=== PATIENT | female | born 1940 | race Caucasian/White ===

== ENCOUNTER 2018-03-05 18:19 | Inpatient (IN) | payer MEDICARE, OTHER ==
[2018-03-05] MEDS ORDERED: Ondansetron 4 MG/2 ML SDV IVPUSH ONE ×2 (18:51→21:55)
[2018-03-05] MEDS: Sodium Chloride 0.9% 10 ML Syringe FLUSH PRN ×2 (18:56→20:13)
[2018-03-05] MEDS ORDERED: Iopamidol 612 MG/ML 100 ML Bottle IVPUSH ONE (19:27)
[2018-03-05] MEDS ORDERED: Diatrizoate Meglumine/Diatrizoate Sodium 37% 120 ML Bottle PO ONE (19:27)
[2018-03-05] MEDS ORDERED: HYDROmorphone 0.5 MG/0.5 ML Syringe IVPUSH ONE ×2 (19:51→21:55)
[2018-03-05] MEDS ORDERED: Sodium Chloride 0.9% 1,000 ML IV ONE ×2 (19:52→21:54)
[2018-03-05] MEDS ORDERED: Sodium Chloride 0.9% 1,000 ML ONE (19:54)
[2018-03-05] MEDS ORDERED: HYDROmorphone 0.5 MG/0.5 ML SYRINGE ONE ×2 (19:55→22:03)
--- NOTE | 2018-03-05 22:05 | EDM.PDOC ---
ED HPI GENERAL MEDICAL PROBLEM - General Chief Complaint: Abdominal Pain Stated Complaint: ABDOMINAL PAIN Time Seen by Provider: 03/05/18 18:57 Source of Information: Reports: Patient History Limitations: Reports: No Limitations - History of Present Illness INITIAL COMMENTS - FREE TEXT/NARRATIVE: 77-year-old female presents for evaluation and treatment of lower abdominal pain. Patient reports this stomach pain started initially at 0300 this morning. States it woke her from sleep. She took 2 aspirin and a Pepto and went back to sleep and slept till 7. Pain continued throughout the day and steadily worsened. She reports associated symptoms of nausea and vomiting. She did take some Metamucil earlier. She did have a bowel movement earlier this afternoon. She has been passing gas. She denies any fevers, chills, syncope, blood in her stools, chest pain or shortness of breath. She reports that she normally struggles with constipation. Previous abdominal surgeries include an appendectomy, several decades ago. She did have colonoscopy over 10 years ago. She was told that she had polyps. She states that she will get some occasional abdominal pain when she lifts heavy objects. Reports that she has a history of a hernia. Primary care provider is Dr. Hong. Last intake around 10am this morning. Lower Abdomen Pain Score (Numeric/FACES): 9 - Related Data Allergies Allergy/AdvReac Type Severity Reaction Status Date / Time No Known Allergies Allergy Verified 03/05/18 18:29 Home Meds: Home Meds . [No Known Home Meds] 03/05/18 [History] Past Medical History - Past Health History Medical/Surgical History: Denies Medical/Surgical History Social & Family History - Tobacco Use Smoking Status *Q: Never Smoker - Caffeine Use Caffeine Use: Reports: Coffee - Recreational Drug Use Recreational Drug Use: No ED ROS GENERAL - Review of Systems Review Of Systems: See Below Constitutional: Reports: Decreased Appetite. Denies: Fever, Chills Respiratory: Denies: Shortness of Breath Cardiovascular: Denies: Chest Pain GI/Abdominal: Reports: Abdominal Pain (lower abdomen), Nausea, Vomiting, Other ( last bowel movement today, reports she has been passing gas today). Denies: Bloody Stool Neurological: Reports: Dizziness (chronic). Denies: Syncope ED EXAM, GI/ABD - Physical Exam Exam: See Below Exam Limited By: No Limitations General Appearance: Alert, WD/WN, No Apparent Distress Ears: Normal External Exam Nose: Normal Inspection Throat/Mouth: Normal Inspection, Normal Lips, Normal Voice, No Airway Compromise Neck: Normal Inspection Respiratory/Chest: No Respiratory Distress, Lungs Clear, Normal Breath Sounds Cardiovascular: Normal Peripheral Pulses, Regular Rate, Rhythm, No Murmur GI/Abdominal Exam: Distended (mild), Tender (lower abdomen), Abnormal Bowel Sounds (high-pitched, tympanitic sounding bowel sounds.). No: Guarding, Rigid Neurological: Alert, Oriented, Normal Cognition Psychiatric: Normal Affect, Normal Mood Skin Exam: Warm, Normal Color Course - Vital Signs Last Recorded V/S: Last Vital Signs Temp 98.6 F 03/05/18 18:26 Pulse 81 03/05/18 18:26 Resp 16 03/05/18 18:26 BP 156/86 H 03/05/18 18:26 Pulse Ox 100 03/05/18 18:26 - Orders/Labs/Meds Orders: Active Orders 24 hr Category Date Time Status Peripheral IV Care [RC] . DIRECTED Care 03/05/18 18:51 Active Abdomen Pelvis w Cont [CT] Stat Exams 03/05/18 18:49 Taken Chest 1V-Tube Placement Chk NC [CR] Stat Exams 03/05/18 22:21 Ordered UA W/MICROSCOPIC [URIN] Stat Lab 03/05/18 19:49 Ordered Sodium Chloride 0.9% [Normal Saline] 1,000 ml Med 03/05/18 21:54 Active IV ONETIME Sodium Chloride 0.9% [Saline Flush] Med 03/05/18 18:51 Active 10 ml FLUSH ASDIRECTED PRN NG [Nasogastric Orogastric Tube Insertion] [OM.PC] Oth 03/05/18 21:56 Ordered Routine Peripheral IV Insertion Adult [OM.PC] Routine Oth 03/05/18 18:51 Ordered Medication Orders Sodium Chloride (Normal Saline) 1,000 mls @ 125 mls/hr IV ONETIME ONE Stop: 03/06/18 05:53 Sodium Chloride (Saline Flush) 10 ml FLUSH ASDIRECTED PRN PRN Reason: Keep Vein Open Last Admin: 03/05/18 20:13 Dose: 10 ml Admin: 03/05/18 18:56 Dose: 10 ml Labs: Laboratory Tests 08/14/18 08/14/18 08/14/18 Range/Units 18:30 18:30 18:30 WBC 12.14 H (3.98-10.04) K/mm3 RBC 4.45 (3.98-5.22) M/mm3 Hgb 13.8 (11.2-15.7) gm/L Hct 41.8 (34.1-44.9) % MCV 93.9 (79.4-94.8) fl MCH 31.0 (25.6-32.2) pg MCHC 33.0 (32.2-35.5) g/dl RDW Std Deviation 45.1 (36.4-46.3) fL Plt Count 373 H (182-369) K/mm3 MPV 9.3 L (9.4-12.3) fl Neutrophils % (Manual) 80 H (40-60) % Band Neutrophils % 1 (0-10) % Lymphocytes % (Manual) 14 L (20-40) % Atypical Lymphs % 0 % Monocytes % (Manual) 4 (2-10) % Eosinophils % (Manual) 1 (0.7-5.8) % Basophils % (Manual) 0 L (0.1-1.2) Platelet Estimate Adequate Plt Morphology Comment See note RBC Morph Comment Normal Sodium 141 (136-145) mEq/L Potassium 3.9 (3.5-5.1) mEq/L Chloride 103 (98-107) mEq/L Carbon Dioxide 28 (21-32) mEq/L Anion Gap 13.9 (5-15) BUN 11 (7-18) mg/dL Creatinine 0.7 (0.55-1.02) mg/dL Est Cr Clr Drug Dosing 54.79 mL/min Estimated GFR (MDRD) > 60 (>60) mL/min BUN/Creatinine Ratio 15.7 (14-18) Glucose 155 H (83-115) mg/dL Hemoglobin A1c (4.50-6.20) % Serum Osmolality 299 (280-300) mosm/kg Lactic Acid (0.4-2.0) mmol/L Calcium 9.2 (8.5-10.1) mg/dL Total Bilirubin 1.1 H (0.2-1.0) mg/dL AST 18 (15-37) U/L ALT 22 (14-59) U/L Alkaline Phosphatase 73 (46-116) U/L C-Reactive Protein 0.4 (<1.0) mg/dL Total Protein 7.5 (6.4-8.2) g/dl Albumin 3.9 (3.4-5.0) g/dl Globulin 3.6 gm/dL Albumin/Globulin Ratio 1.1 (1-2) Lipase 74 (73-393) U/L Urine Color (Yellow) Urine Appearance (Clear) Urine pH (5.0-8.0) Ur Specific [place] (1.005-1.030) Urine Protein (Negative) Urine Glucose (UA) (Negative) Urine Ketones (Negative) Urine Occult Blood (Negative) Urine Nitrite (Negative) Urine Bilirubin (Negative) Urine Urobilinogen (0.2-1.0) Ur Leukocyte Esterase (Negative) Urine RBC (0-5) /hpf Urine WBC (0-5) /hpf Ur Epithelial Cells (0-5) /hpf Urine Bacteria (FEW) /hpf Urine Mucus (FEW) /hpf Ketones (0.0-0.3) mM 03/05/18 03/05/18 03/05/18 Range/Units 18:30 18:30 19:49 WBC (3.98-10.04) K/mm3 RBC (3.98-5.22) M/mm3 Hgb (11.2-15.7) gm/L Hct (34.1-44.9) % MCV (79.4-94.8) fl MCH (25.6-32.2) pg MCHC (32.2-35.5) g/dl RDW Std Deviation (36.4-46.3) fL Plt Count (182-369) K/mm3 MPV (9.4-12.3) fl Neutrophils % (Manual) (40-60) % Band Neutrophils % (0-10) % Lymphocytes % (Manual) (20-40) % Atypical Lymphs % % Monocytes % (Manual) (2-10) % Eosinophils % (Manual) (0.7-5.8) % Basophils % (Manual) (0.1-1.2) Platelet Estimate Plt Morphology Comment RBC Morph Comment Sodium (136-145) mEq/L Potassium (3.5-5.1) mEq/L Chloride (98-107) mEq/L Carbon Dioxide (21-32) mEq/L Anion Gap (5-15) BUN (7-18) mg/dL Creatinine (0.55-1.02) mg/dL Est Cr Clr Drug Dosing mL/min Estimated GFR (MDRD) (>60) mL/min BUN/Creatinine Ratio (14-18) Glucose (83-115) mg/dL Hemoglobin A1c 6.20 (4.50-6.20) % Serum Osmolality (280-300) mosm/kg Lactic Acid (0.4-2.0) mmol/L Calcium (8.5-10.1) mg/dL Total Bilirubin (0.2-1.0) mg/dL AST (15-37) U/L ALT (14-59) U/L Alkaline Phosphatase (46-116) U/L C-Reactive Protein (<1.0) mg/dL Total Protein (6.4-8.2) g/dl Albumin (3.4-5.0) g/dl Globulin gm/dL Albumin/Globulin Ratio (1-2) Lipase (73-393) U/L Urine Color Yellow (Yellow) Urine Appearance Clear (Clear) Urine pH 6.5 (5.0-8.0) Ur Specific [place] 1.025 (1.005-1.030) Urine Protein 1+ H (Negative) Urine Glucose (UA) Negative (Negative) Urine Ketones 4+ H (Negative) Urine Occult Blood Trace-intact H (Negative) Urine Nitrite Negative (Negative) Urine Bilirubin Negative (Negative) Urine Urobilinogen 0.2 (0.2-1.0) Ur Leukocyte Esterase Trace H (Negative) Urine RBC 5-10 H (0-5) /hpf Urine WBC 5-10 H (0-5) /hpf Ur Epithelial Cells 0-5 (0-5) /hpf Urine Bacteria Few (FEW) /hpf Urine Mucus Few (FEW) /hpf Ketones 0.55 (0.0-0.3) mM 03/05/18 Range/Units 21:34 WBC (3.98-10.04) K/mm3 RBC (3.98-5.22) M/mm3 Hgb (11.2-15.7) gm/L Hct (34.1-44.9) % MCV (79.4-94.8) fl MCH (25.6-32.2) pg MCHC (32.2-35.5) g/dl RDW Std Deviation (36.4-46.3) fL Plt Count (182-369) K/mm3 MPV (9.4-12.3) fl Neutrophils % (Manual) (40-60) % Band Neutrophils % (0-10) % Lymphocytes % (Manual) (20-40) % Atypical Lymphs % % Monocytes % (Manual) (2-10) % Eosinophils % (Manual) (0.7-5.8) % Basophils % (Manual) (0.1-1.2) Platelet Estimate Plt Morphology Comment RBC Morph Comment Sodium (136-145) mEq/L Potassium (3.5-5.1) mEq/L Chloride (98-107) mEq/L Carbon Dioxide (21-32) mEq/L Anion Gap (5-15) BUN (7-18) mg/dL Creatinine (0.55-1.02) mg/dL Est Cr Clr Drug Dosing mL/min Estimated GFR (MDRD) (>60) mL/min BUN/Creatinine Ratio (14-18) Glucose (83-115) mg/dL Hemoglobin A1c (4.50-6.20) % Serum Osmolality (280-300) mosm/kg Lactic Acid 1.2 (0.4-2.0) mmol/L Calcium (8.5-10.1) mg/dL Total Bilirubin (0.2-1.0) mg/dL AST (15-37) U/L ALT (14-59) U/L Alkaline Phosphatase (46-116) U/L C-Reactive Protein (<1.0) mg/dL Total Protein (6.4-8.2) g/dl Albumin (3.4-5.0) g/dl Globulin gm/dL Albumin/Globulin Ratio (1-2) Lipase (73-393) U/L Urine Color (Yellow) Urine Appearance (Clear) Urine pH (5.0-8.0) Ur Specific [place] (1.005-1.030) Urine Protein (Negative) Urine Glucose (UA) (Negative) Urine Ketones (Negative) Urine Occult Blood (Negative) Urine Nitrite (Negative) Urine Bilirubin (Negative) Urine Urobilinogen (0.2-1.0) Ur Leukocyte Esterase (Negative) Urine RBC (0-5) /hpf Urine WBC (0-5) /hpf Ur Epithelial Cells (0-5) /hpf Urine Bacteria (FEW) /hpf Urine Mucus (FEW) /hpf Ketones (0.0-0.3) mM Meds: Medications Generic Name Dose Route Start Last Admin Trade Name Russell PRN Reason Stop Dose Admin Sodium Chloride 1,000 mls @ 125 mls/hr 03/05/18 21:54 Normal Saline IV 03/06/18 05:53 ONETIME ONE Sodium Chloride 10 ml 03/05/18 18:51 03/05/18 20:13 Saline Flush FLUSH 10 ml ASDIRECTED PRN Administration Keep Vein Open Discontinued Medications Generic Name Dose Route Start Last Admin Trade Name Russell PRN Reason Stop Dose Admin Diatrizoate Meglum/Diatrizoate Sod 120 ml 03/05/18 19:27 03/05/18 20:13 Gastrografin 37% PO 03/05/18 19:28 120 ml ONETIME ONE Administration Hydromorphone HCl 0.5 mg 03/05/18 19:51 03/05/18 19:58 Dilaudid IVPUSH 03/05/18 19:52 0.5 mg ONETIME ONE Administration Hydromorphone HCl Confirm 03/05/18 19:55 03/05/18 19:59 Dilaudid Administered 03/05/18 19:56 Not Given Dose 0.5 mg .ROUTE .STK-MED ONE Hydromorphone HCl 0.5 mg 03/05/18 21:55 Dilaudid IVPUSH 03/05/18 21:56 ONETIME ONE Hydromorphone HCl Confirm 03/05/18 22:03 03/05/18 22:08 Dilaudid Administered 03/05/18 22:04 0.5 mg Dose Administration 0.5 mg .ROUTE .STK-MED ONE Sodium Chloride 1,000 mls @ 999 mls/hr 03/05/18 19:52 03/05/18 19:59 Normal Saline IV 03/05/18 20:52 999 mls/hr ONETIME ONE Administration Sodium Chloride Confirm 03/05/18 19:54 03/05/18 20:30 Normal Saline Administered 03/05/18 19:55 Not Given Dose 1,000 mls @ as directed .ROUTE .STK-MED ONE Iopamidol 100 ml 03/05/18 19:27 03/05/18 20:13 Isovue-300 (61%) IVPUSH 03/05/18 19:28 100 ml ONETIME ONE Administration Lidocaine HCl Confirm 03/05/18 22:23 Xylocaine 2% Jelly Administered 03/05/18 22:24 Dose 10 ml .ROUTE .STK-MED ONE Ondansetron HCl 4 mg 03/05/18 18:51 03/05/18 18:56 Zofran IVPUSH 03/05/18 18:52 4 mg ONETIME ONE Administration Ondansetron HCl 4 mg 03/05/18 21:55 03/05/18 22:08 Zofran IVPUSH 03/05/18 21:56 4 mg ONETIME ONE Administration - Radiology Interpretation Free Text/Narrative:: CT of the abdomen and pelvis with IV and oral contrast impression per vrad: Large hiatal hernia with distended stomach filled with oral contrast. Findings consistent with small bowel obstruction. Fluid-filled dilated loops of small bowel with transition point within the mid pelvis. Pseudo-feces within dilated small bowel perceiving the transition point. Distal small bowel is decompressed. No mucosal thickening. Mild left hydronephrosis. No obstructing renal or ureteral stone identified. Findings could be consistent with recently passed stone versus infection. Recommend clinical correlation and correlation with urinalysis/culture. Small amount of free fluid within the pelvis. Left lateral lower abdominal wall feeling hernia containing nonobstructed sigmoid colon. No CT findings of acute appendicitis. Hepatic steatosis. Additional nonemergent CT findings as described. - Re-Assessments/Exams Free Text/Narrative Re-Assessment/Exam: 03/05/18 21:17 Dr. Mcfadden in the ED. Made aware of patient as a possible admit for concern of small bowel obstruction. Recommended adding on serum ketones and lactic acid due to 4+ ketones in urine. 03/05/18 21:49 CT returned. Small bowel obstruction. Fluid-filled dilated loops of small bowel with transition point within the mid pelvis. Pseudo-feces within dilated small bowel proceeding the transition point. Distal small bowel is decompressed. No mucosal thickening. Large hiatal hernia. Sequelae and hernia on the left lateral lower abdomen. Discussed with Dr. Greenfield, surgery online producer, recommended NG tube and admission to the hospitalist. She will follow up in the morning. She would like to be notified overnight if her symptoms change or worsen. No plan for surgery at this time. Reviewed the labs and imaging with the patient and her . They're quite anxious about her diagnosis. Would like to consider going to [place]. I did educate them that the initial care would be the same therefore if they would like to go to [place] it would be possible they may have to pay for an ambulance ride. 03/05/18 22:52 Patient and her asked that I explore the option of her going to [place]. I contacted [facility] in [place]. Currently full and her only exception OB and peds patient's. I informed him this of this and they agreed to stay here at our hospital. Case discussed with Dr. Mcfadden, hospitalist on-call. She'll be a full admit MedSurg with telemetry. Departure - Departure Time of Disposition: 23:03 Disposition: Admitted As Inpatient 65 Condition: Fair Clinical Impression: Small bowel obstruction - Discharge Information *PRESCRIPTION DRUG MONITORING PROGRAM REVIEWED*: No *COPY OF PRESCRIPTION DRUG MONITORING REPORT IN PATIENT LENCHO: No Referrals: Tammy Hong MD [Primary Care Provider] - Forms: ED Department Discharge Additional Instructions: Patient to be admitted to Dr. Mcfadden for Small bowel obstruction. Med/surg with tele full admission. - My Orders Last 24 Hours: My Active Orders 03/05/18 18:49 Abdomen Pelvis w Cont [CT] Stat 03/05/18 18:51 Peripheral IV Care [RC] . DIRECTED Sodium Chloride 0.9% [Saline Flush] 10 ml FLUSH ASDIRECTED PRN Peripheral IV Insertion Adult [OM.PC] Routine 03/05/18 19:49 UA W/MICROSCOPIC [URIN] Stat 03/05/18 21:54 Sodium Chloride 0.9% [Normal Saline] 1,000 ml IV ONETIME 03/05/18 21:56 NG [Nasogastric Orogastric Tube Insertion] [OM.PC] Routine 03/05/18 22:21 Chest 1V-Tube Placement Chk NC [CR] Stat - Assessment/Plan Last 24 Hours: My Active Orders 03/05/18 18:49 Abdomen Pelvis w Cont [CT] Stat 03/05/18 18:51 Peripheral IV Care [RC] . DIRECTED Sodium Chloride 0.9% [Saline Flush] 10 ml FLUSH ASDIRECTED PRN Peripheral IV Insertion Adult [OM.PC] Routine 03/05/18 19:49 UA W/MICROSCOPIC [URIN] Stat 03/05/18 21:54 Sodium Chloride 0.9% [Normal Saline] 1,000 ml IV ONETIME 03/05/18 21:56 NG [Nasogastric Orogastric Tube Insertion] [OM.PC] Routine 03/05/18 22:21 Chest 1V-Tube Placement Chk NC [CR] Stat
[2018-03-05] MEDS ORDERED: Lidocaine 2% Jelly 10 ML Urojet ONE (22:23)
[2018-03-05] MEDS ORDERED: Lidocaine 2% Jelly 10 ML Urojet MUCMEM ONE (23:11)
[2018-03-06] MEDS ORDERED: LORazepam 2 MG/ML SDV IVPUSH PRN (00:48)
[2018-03-06] MEDS ORDERED: Pantoprazole 40 MG Vial IVPUSH ONE (01:00)
[2018-03-06] MEDS: HYDROmorphone 0.5 MG/0.5 ML Syringe IVPUSH PRN ×3 (01:01→17:13)
[2018-03-06] MEDS ORDERED: Ondansetron 4 MG/2 ML SDV IV PRN (06:26)
[2018-03-06] MEDS ORDERED: Acetaminophen 650 MG Supp RECTAL PRN (06:26)
[2018-03-06] MEDS ORDERED: Metoprolol Tartrate 5 MG/5 ML SDV IVPUSH PRN (06:30)
[2018-03-06] MEDS ORDERED: hydrALAZINE 20 MG/ML SDV IVPUSH PRN (06:30)
--- NOTE | 2018-03-06 07:00 | PCM.HP ---
H&P History of Present Illness - General Date of Service: 03/06/18 Admit Problem/Dx: Admission Diagnosis/Problem Admission Diagnosis/Problem Small bowel obstruction Source of Information: Patient, Old Records, Provider, RN, RN Notes Reviewed History Limitations: Reports: No Limitations - History of Present Illness Initial Comments - Free Text/Narative: Jaz Ramirez is a 77 yo female who presented to our ED yesterday evening with lower quadrant abdominal pain. She reports the pain started around 3 AM this morning and woke her from sleep. She took 2 aspirin and Pepto-Bismol went back to sleep. She woke again at 7 AM with pain throughout the day and is steadily worsened. She did have nausea and vomiting. She did take some Metamucil at one point and reportedly did have a small bowel movement earlier in the afternoon prior to visiting the ED. She reported they have been passing gas. Denies any fever, chills, syncope, hematochezia, chest pain, shortness of breath. She reports she has chronic as the patient and has had an appendectomy. She reports her colonoscopy was over 10 years ago and revealed polyps. She does report a current hernia which does give her some pain when she lifts heavy objects. Her last oral intake was around 10 AM on 03/05/18. In the ED Was 98.6 Fahrenheit. Pulse 81. Respirations 16. Blood pressure was elevated at 156/86. Pulse ox 100%. Labs were obtained: WBC is elevated at 12.14. He was low at 13.8. Hematocrit 41.8. She is normocytic. Lips are slightly elevated at 373,000. Neutrophils were elevated at 80%. There is 1% band neutrophils noted. Sodium is 141. Potassium 3.9. Chloride 103. Cardiac the 28. Anion gap 13.9. BUN is 11. Creatinine 0.7. EGFR is given 60. Glucose is elevated at 155. Serum osmolality is 299. Calcium 9.2. Bilirubin slightly elevated at 1.1. AST is 18, ALT 22, alkaline phosphatase 73. CRP 0.4. Protein 7.5. Albumin 3.9. Lipase is 74. A1c was obtained in the 6.2. UA is obtained and shows 1+ protein, 4+ ketones, Trace intact blood, Trace leukocyte esterase, 5-10 RBCs, and 5-10 WBCs. 55. Lactic acid is 1.2. CT scan of the abdomen and pelvis with IV and oral contrast is ordered and interpreted by [facility] as "large hiatal hernia with distended stomach filled with oral contrast. Findings consistent with small bowel obstruction. Fluid-filled dilated loops of small bowel with transition point within the mid pelvis. Pseudo-feces within dilated small bowel proceeding the transition point. Distal small bowel decompressed. No mucosal thickening. Mild left hydronephrosis. No obstructing renal artery ureteral stone identified. Findings could be consistent with recently passed stone versus infection. Recommend Correlation and Correlation with Urinalysis Culture. Small Amount of Free Fluid within the Pelvis. Left Lateral Lower Abdominal Wall hiatal hernia containing nonobstructed sigmoid colon. No CT findings of acute appendicitis. Hepatic steatosis. Additional nonemergent CT findings as described. call center associate surgeon was contacted and recommended NG tube, which was subsequently placed and admission to the hospital. There is no plan for surgery at this time. She is given Dilaudid for pain. Started on normal saline. And was given Zofran for nausea. She is subsequently admitted to the medical surgical floor on telemetry. She denies any past medical history and takes no medications. She was never a smoker. Lower Abdomen Pain Score (Numeric/FACES): 9 - Related Data Allergies/Adverse Reactions: Allergies Allergy/AdvReac Type Severity Reaction Status Date / Time No Known Allergies Allergy Verified 03/05/18 18:29 Home Medications: Home Meds . [No Known Home Meds] 03/05/18 [History] Past Medical History - Past Health History Medical/Surgical History: Denies Medical/Surgical History HEENT History: Reports: Cataract Cardiovascular History: Reports: Blood Clots/VTE/DVT, Other (See Below) Other Cardiovascular History: 2008 blood clot in leg Gastrointestinal History: Reports: Other (See Below) Other Gastrointestinal History: hernia [employer] History: Reports: Neurological History: Reports: Speech Problems, Other (See Below) Other Neuro History: at times can't say correct words, states this is her baseline. Psychiatric History: Reports: Depression Other Psychiatric History: hospitalized for psychiatric depression - Past Surgical History HEENT Surgical History: Reports: Cataract Surgery Cardiovascular Surgical History: Reports: None GI Surgical History: Reports: Appendectomy, Colonoscopy Social & Family History - Family History Family Medical History: Noncontributory - Tobacco Use Smoking Status *Q: Former Smoker Used Tobacco, but Quit: Yes Month/Year Tobacco Last Used: 50 years ago - Caffeine Use Caffeine Use: Reports: Coffee - Recreational Drug Use Recreational Drug Use: No H&P Review of Systems - Review of Systems: Review Of Systems: See Below General: Reports: Decreased Appetite. Denies: Fever, Chills, Malaise, Weakness , Fatigue HEENT: Reports: Sore Throat (NG tube in place ). Denies: Ear Pain, Eye Pain, Rhinitis, Post Nasal Drip Pulmonary: Reports: No Symptoms. Denies: Shortness of Breath, Wheezing, Cough, Sputum Cardiovascular: Reports: No Symptoms. Denies: Chest Pain, Palpitations, Dyspnea on Exertion, Edema, Lightheadedness, Claudication Gastrointestinal: Reports: Abdominal Pain (upper quadrants ), Constipation ( chronic ), Decreased Appetite. Denies: Diarrhea, Difficulty Swallowing, Distension, Flatus, Hematemesis, Hematochezia, Melena, Nausea (none currently ) , Vomiting (none currently ) Genitourinary: Reports: No Symptoms. Denies: Dysuria, Frequency, Burning, Pain , Urgency Musculoskeletal: Reports: No Symptoms Skin: Reports: No Symptoms Psychiatric: Reports: No Symptoms Neurological: Reports: No Symptoms Hematologic/Lymphatic: Reports: No Symptoms Immunologic: Reports: No Symptoms Exam - Exam Exam: See Below - Vital Signs Vital Signs: Last Vital Signs Temp 98.1 F 03/06/18 03:44 Pulse 77 03/06/18 03:44 Resp 16 03/06/18 03:44 BP 132/50 L 03/06/18 03:44 Pulse Ox 97 03/06/18 03:44 Weight: 143 lb 1.6 oz - Exam Quality Assessment: DVT Prophylaxis, Other (NG tube in place ) General: Alert, Oriented, Cooperative. No: Mild Distress HEENT: Conjunctiva Clear, EACs Clear, EOMI, Hearing Intact, Mucosa Moist & Fabens , Posterior Pharynx Clear, PERRLA Neck: Supple, Trachea Midline. No: JVD Lungs: Clear to Auscultation, Normal Respiratory Effort Cardiovascular: Regular Rate, Regular Rhythm GI/Abdominal Exam: Distended (mildly), Tender, Abnormal Bowel Sounds ( hyperactive ). No: Rigid (Female) Exam: Deferred Rectal (Female) Exam: Deferred Back Exam: Normal Inspection, Full Range of Motion Extremities: Normal Inspection, Normal Range of Motion, Non-Tender, No Pedal Edema, Normal Capillary Refill Peripheral Pulses: 2+: Radial (L), Radial (R), Posterior Tibial (L), Posterior Tibial (R), Dorsalis Pedis (L), Dorsalis Pedis (R) Skin: Warm, Dry, Intact Neurological: Cranial Nerves Intact (grossly ) Neuro Extensive - Mental Status: Alert, Oriented x3, Normal Mood/Affect - Patient Data Lab Results Last 24 hrs: Laboratory Results - last 24 hr 03/05/18 03/05/18 03/05/18 Range/Units 18:30 18:30 18:30 WBC 12.14 H (3.98-10.04) K/mm3 RBC 4.45 (3.98-5.22) M/mm3 Hgb 13.8 (11.2-15.7) gm/L Hct 41.8 (34.1-44.9) % MCV 93.9 (79.4-94.8) fl MCH 31.0 (25.6-32.2) pg MCHC 33.0 (32.2-35.5) g/dl RDW Std Deviation 45.1 (36.4-46.3) fL Plt Count 373 H (182-369) K/mm3 MPV 9.3 L (9.4-12.3) fl Neutrophils % (Manual) 80 H (40-60) % Band Neutrophils % 1 (0-10) % Lymphocytes % (Manual) 14 L (20-40) % Atypical Lymphs % 0 % Monocytes % (Manual) 4 (2-10) % Eosinophils % (Manual) 1 (0.7-5.8) % Basophils % (Manual) 0 L (0.1-1.2) Platelet Estimate Adequate Plt Morphology Comment See note RBC Morph Comment Normal Sodium 141 (136-145) mEq/L Potassium 3.9 (3.5-5.1) mEq/L Chloride 103 (98-107) mEq/L Carbon Dioxide 28 (21-32) mEq/L Anion Gap 13.9 (5-15) BUN 11 (7-18) mg/dL Creatinine 0.7 (0.55-1.02) mg/dL Est Cr Clr Drug Dosing 54.79 mL/min Estimated GFR (MDRD) > 60 (>60) mL/min BUN/Creatinine Ratio 15.7 (14-18) Glucose 155 H (83-115) mg/dL Hemoglobin A1c (4.50-6.20) % Serum Osmolality 299 (280-300) mosm/kg Lactic Acid (0.4-2.0) mmol/L Calcium 9.2 (8.5-10.1) mg/dL Total Bilirubin 1.1 H (0.2-1.0) mg/dL AST 18 (15-37) U/L ALT 22 (14-59) U/L Alkaline Phosphatase 73 (46-116) U/L C-Reactive Protein 0.4 (<1.0) mg/dL Total Protein 7.5 (6.4-8.2) g/dl Albumin 3.9 (3.4-5.0) g/dl Globulin 3.6 gm/dL Albumin/Globulin Ratio 1.1 (1-2) Lipase 74 (73-393) U/L Urine Color (Yellow) Urine Appearance (Clear) Urine pH (5.0-8.0) Ur Specific [place] (1.005-1.030) Urine Protein (Negative) Urine Glucose (UA) (Negative) Urine Ketones (Negative) Urine Occult Blood (Negative) Urine Nitrite (Negative) Urine Bilirubin (Negative) Urine Urobilinogen (0.2-1.0) Ur Leukocyte Esterase (Negative) Urine RBC (0-5) /hpf Urine WBC (0-5) /hpf Ur Epithelial Cells (0-5) /hpf Urine Bacteria (FEW) /hpf Urine Mucus (FEW) /hpf Ketones (0.0-0.3) mM 03/05/18 03/05/18 03/05/18 Range/Units 18:30 18:30 19:49 WBC (3.98-10.04) K/mm3 RBC (3.98-5.22) M/mm3 Hgb (11.2-15.7) gm/L Hct (34.1-44.9) % MCV (79.4-94.8) fl MCH (25.6-32.2) pg MCHC (32.2-35.5) g/dl RDW Std Deviation (36.4-46.3) fL Plt Count (182-369) K/mm3 MPV (9.4-12.3) fl Neutrophils % (Manual) (40-60) % Band Neutrophils % (0-10) % Lymphocytes % (Manual) (20-40) % Atypical Lymphs % % Monocytes % (Manual) (2-10) % Eosinophils % (Manual) (0.7-5.8) % Basophils % (Manual) (0.1-1.2) Platelet Estimate Plt Morphology Comment RBC Morph Comment Sodium (136-145) mEq/L Potassium (3.5-5.1) mEq/L Chloride (98-107) mEq/L Carbon Dioxide (21-32) mEq/L Anion Gap (5-15) BUN (7-18) mg/dL Creatinine (0.55-1.02) mg/dL Est Cr Clr Drug Dosing mL/min Estimated GFR (MDRD) (>60) mL/min BUN/Creatinine Ratio (14-18) Glucose (83-115) mg/dL Hemoglobin A1c 6.20 (4.50-6.20) % Serum Osmolality (280-300) mosm/kg Lactic Acid (0.4-2.0) mmol/L Calcium (8.5-10.1) mg/dL Total Bilirubin (0.2-1.0) mg/dL AST (15-37) U/L ALT (14-59) U/L Alkaline Phosphatase (46-116) U/L C-Reactive Protein (<1.0) mg/dL Total Protein (6.4-8.2) g/dl Albumin (3.4-5.0) g/dl Globulin gm/dL Albumin/Globulin Ratio (1-2) Lipase (73-393) U/L Urine Color Yellow (Yellow) Urine Appearance Clear (Clear) Urine pH 6.5 (5.0-8.0) Ur Specific [place] 1.025 (1.005-1.030) Urine Protein 1+ H (Negative) Urine Glucose (UA) Negative (Negative) Urine Ketones 4+ H (Negative) Urine Occult Blood Trace-intact H (Negative) Urine Nitrite Negative (Negative) Urine Bilirubin Negative (Negative) Urine Urobilinogen 0.2 (0.2-1.0) Ur Leukocyte Esterase Trace H (Negative) Urine RBC 5-10 H (0-5) /hpf Urine WBC 5-10 H (0-5) /hpf Ur Epithelial Cells 0-5 (0-5) /hpf Urine Bacteria Few (FEW) /hpf Urine Mucus Few (FEW) /hpf Ketones 0.55 (0.0-0.3) mM 03/05/18 Range/Units 21:34 WBC (3.98-10.04) K/mm3 RBC (3.98-5.22) M/mm3 Hgb (11.2-15.7) gm/L Hct (34.1-44.9) % MCV (79.4-94.8) fl MCH (25.6-32.2) pg MCHC (32.2-35.5) g/dl RDW Std Deviation (36.4-46.3) fL Plt Count (182-369) K/mm3 MPV (9.4-12.3) fl Neutrophils % (Manual) (40-60) % Band Neutrophils % (0-10) % Lymphocytes % (Manual) (20-40) % Atypical Lymphs % % Monocytes % (Manual) (2-10) % Eosinophils % (Manual) (0.7-5.8) % Basophils % (Manual) (0.1-1.2) Platelet Estimate Plt Morphology Comment RBC Morph Comment Sodium (136-145) mEq/L Potassium (3.5-5.1) mEq/L Chloride (98-107) mEq/L Carbon Dioxide (21-32) mEq/L Anion Gap (5-15) BUN (7-18) mg/dL Creatinine (0.55-1.02) mg/dL Est Cr Clr Drug Dosing mL/min Estimated GFR (MDRD) (>60) mL/min BUN/Creatinine Ratio (14-18) Glucose (83-115) mg/dL Hemoglobin A1c (4.50-6.20) % Serum Osmolality (280-300) mosm/kg Lactic Acid 1.2 (0.4-2.0) mmol/L Calcium (8.5-10.1) mg/dL Total Bilirubin (0.2-1.0) mg/dL AST (15-37) U/L ALT (14-59) U/L Alkaline Phosphatase (46-116) U/L C-Reactive Protein (<1.0) mg/dL Total Protein (6.4-8.2) g/dl Albumin (3.4-5.0) g/dl Globulin gm/dL Albumin/Globulin Ratio (1-2) Lipase (73-393) U/L Urine Color (Yellow) Urine Appearance (Clear) Urine pH (5.0-8.0) Ur Specific [place] (1.005-1.030) Urine Protein (Negative) Urine Glucose (UA) (Negative) Urine Ketones (Negative) Urine Occult Blood (Negative) Urine Nitrite (Negative) Urine Bilirubin (Negative) Urine Urobilinogen (0.2-1.0) Ur Leukocyte Esterase (Negative) Urine RBC (0-5) /hpf Urine WBC (0-5) /hpf Ur Epithelial Cells (0-5) /hpf Urine Bacteria (FEW) /hpf Urine Mucus (FEW) /hpf Ketones (0.0-0.3) mM Result Diagrams: 03/06/18 06:15 03/06/18 06:15 - Problem List (1) Small bowel obstruction SNOMED Code(s): 775578145 ICD Code: K56.609 - UNSP INTESTNL OBST, UNSP TO PARTIAL VERSUS COMPLETE OBST Status: Acute Current Visit: Yes (2) Constipation SNOMED Code(s): 42663958 ICD Code: K59.00 - CONSTIPATION, UNSPECIFIED Status: Chronic Priority: Low Current Visit: No Qualifiers: Constipation type: unspecified constipation type Qualified Code(s): K59.00 - Constipation, unspecified Problem List Initiated/Reviewed/Updated: Yes Orders Last 24hrs: Active Orders 24 hr Category Date Time Status Patient Status [ADT] Routine ADT 03/05/18 23:07 Active Blood Glucose Check, Bedside [RC] Q6HR Care 03/06/18 06:54 Ordered Cardiac Monitoring [RC] CONTINUOUS Care 03/06/18 06:26 Active Height and Weight [RC] DAILY Care 03/06/18 06:26 Active Intake and Output [RC] QSHIFT Care 03/06/18 06:26 Active Notify Provider Consults [RC] ASDIRECTED Care 03/06/18 00:47 Active Oxygen Therapy [RC] PRN Care 03/06/18 06:26 Active Pulse Oximetry [RC] PRN Care 03/06/18 06:26 Active Up With Assistance [RC] ASDIRECTED Care 03/06/18 06:26 Active Up to Chair [RC] ASDIRECTED Care 03/06/18 06:26 Active VTE/DVT Education [RC] PER UNIT ROUTINE Care 03/06/18 06:26 Active Vital Signs [RC] Q4H Care 03/06/18 06:26 Active Consult to Physician [CONS] Routine Cons 03/06/18 00:46 Active OT Evaluation and Treatment [CONS] Routine Cons 03/06/18 06:26 Active PT Evaluation and Treatment [CONS] Routine Cons 03/06/18 06:26 Active NPO [Nothing Per Oral Diet] [DIET] Diet 03/06/18 Breakfast Active Abdomen Pelvis w Cont [CT] Stat Exams 03/05/18 18:49 Taken Chest 1V-Tube Placement Chk NC [CR] Stat Exams 03/05/18 22:21 Taken A1C [GLYCOSYLATED HEMOGLOBIN,HGBA1C] [CHEM] Routine Lab 03/06/18 06:36 Ordered BASIC METABOLIC PANEL,BMP [CHEM] AM Lab 03/07/18 05:11 Ordered BASIC METABOLIC PANEL,BMP [CHEM] AM Lab 03/08/18 05:11 Ordered BASIC METABOLIC PANEL,BMP [CHEM] AM Lab 03/09/18 05:11 Ordered BASIC METABOLIC PANEL,BMP [CHEM] AM Lab 03/10/18 05:11 Ordered BMP [BASIC METABOLIC PANEL,BMP] [CHEM] Routine Lab 03/06/18 05:00 Ordered CBC WITH AUTO DIFF [HEME] AM Lab 03/07/18 05:11 Ordered CBC WITH AUTO DIFF [HEME] AM Lab 03/08/18 05:11 Ordered CBC WITH AUTO DIFF [HEME] AM Lab 03/09/18 05:11 Ordered CBC WITH AUTO DIFF [HEME] AM Lab 03/10/18 05:11 Ordered CBC WITH AUTO DIFF [HEME] Routine Lab 03/06/18 05:00 Ordered CRP [C-REACTIVE PROTEIN] [CHEM] AM Lab 03/07/18 05:11 Ordered CRP [C-REACTIVE PROTEIN] [CHEM] AM Lab 03/08/18 05:11 Ordered CRP [C-REACTIVE PROTEIN] [CHEM] AM Lab 03/09/18 05:11 Ordered CRP [C-REACTIVE PROTEIN] [CHEM] AM Lab 03/10/18 05:11 Ordered CULTURE URINE [RM] Stat Lab 03/05/18 19:49 Ordered MAGNESIUM [CHEM] AM Lab 03/07/18 05:11 Ordered MAGNESIUM [CHEM] AM Lab 03/08/18 05:11 Ordered MAGNESIUM [CHEM] AM Lab 03/09/18 05:11 Ordered MAGNESIUM [CHEM] AM Lab 03/10/18 05:11 Ordered MG [MAGNESIUM] [CHEM] Routine Lab 03/06/18 05:00 Ordered UA W/MICROSCOPIC [URIN] Stat Lab 03/05/18 19:49 Ordered Acetaminophen [Tylenol] Med 03/06/18 06:26 Active 650 mg RECTAL Q4H PRN Dextrose 5%-0.9% NaCl [Dextrose 5%-Normal Saline] 1,000 Med 03/06/18 06:45 Active ml IV ASDIRECTED Enoxaparin [Lovenox] Med 03/06/18 09:00 Active 40 mg SUBCUT DAILY HYDROmorphone [Dilaudid] Med 03/06/18 00:47 Active 0.5 mg IVPUSH Q4H PRN LORazepam [Ativan] Med 03/06/18 00:48 Active 0.5 mg IVPUSH Q8H PRN Metoprolol Tartrate [Lopressor] Med 03/06/18 06:30 Active 5 mg IVPUSH Q4H PRN Ondansetron [Zofran] Med 03/06/18 06:26 Active 4 mg IV Q6H PRN Pantoprazole [ProTONIX IV] Med 03/06/18 09:00 Active 40 mg IV DAILY Sodium Chloride 0.9% [Saline Flush] Med 03/05/18 18:51 Active 10 ml FLUSH ASDIRECTED PRN hydrALAZINE [Apresoline] Med 03/06/18 06:30 Active 20 mg IVPUSH Q4H PRN NG [Nasogastric Orogastric Tube Insertion] [OM.PC] Oth 03/05/18 21:56 Ordered Routine Peripheral IV Insertion Adult [OM.PC] Routine Oth 03/05/18 18:51 Ordered Resuscitation Status Routine Resus Stat 03/06/18 01:12 Ordered Medication Orders Acetaminophen (Tylenol) 650 mg RECTAL Q4H PRN PRN Reason: Pain (mild 1-3) Enoxaparin Sodium (Lovenox) 40 mg SUBCUT DAILY KACI Hydralazine HCl (Apresoline) 20 mg IVPUSH Q4H PRN PRN Reason: Hypertension Hydromorphone HCl (Dilaudid) 0.5 mg IVPUSH Q4H PRN PRN Reason: Pain Last Admin: 03/06/18 01:01 Dose: 0.5 mg Dextrose/Sodium Chloride (Dextrose 5%-Normal Saline) 1,000 mls @ 75 mls/hr IV ASDIRECTED KACI Lorazepam (Ativan) 0.5 mg IVPUSH Q8H PRN PRN Reason: anxiety/insomnia Metoprolol Tartrate (Lopressor) 5 mg IVPUSH Q4H PRN PRN Reason: Tachycardia Ondansetron HCl (Zofran) 4 mg IV Q6H PRN PRN Reason: Nausea/Vomiting Pantoprazole Sodium (Protonix Iv) 40 mg IV DAILY KACI Sodium Chloride (Saline Flush) 10 ml FLUSH ASDIRECTED PRN PRN Reason: Keep Vein Open Last Admin: 03/05/18 20:13 Dose: 10 ml Admin: 03/05/18 18:56 Dose: 10 ml Assessment/Plan Comment:: I/P: Acute: SBO -Reports abdominal pain started around 0300 on 03/05/18 -Progressed to nausea and vomiting -Denies fever or chills, denies prior history of SBO -Reports prior appendectomy and colonoscopy 10+ years ago with polyps removed ; hx/o chronic constipation -Has current hernia which produces pain with heavy lifting -WBC 12.14 -CRP 0.4 -Lactic acid 1.2 -CT scan suggests SBO with transition point in mid pelvis, No mucosal thickening, Large hiatal hernia on left lower abdomen -NG tube placed in ED - continue with low intermittent suction -Pain medications as ordered - avoid opioids if possible -NPO with ice chips -D5NS with glucose checks Q6hr due to NPO -IV protonix -GS consulted in ED - Dr. Long Lujan -Ambulate -Anti-emetics as needed "Pre-Diabetic" -Blood glucose 155 in ED -A1C 6.2 -Briefly discussed lifestyle changes -PCP to monitor and follow-up on after discharge Chronic: Constipation Plan: Admit to medical floor on telemetry Other orders as indicated above PT/OT Routine AM labs DVT prophylaxis: Lovenox GI prophylaxis: Protonix
[2018-03-06] MEDS: Dextrose 5%-0.9% NaCl 1,000 ML IV SCH ×2 (07:11→18:49)
[2018-03-06] MEDS: Benzocaine/Cetylpyridinium/Menthol Lozenge MUCMEM PRN (09:33)
[2018-03-06] MEDS: Pantoprazole 40 MG Vial IV SCH (09:33)
[2018-03-06] MEDS: Enoxaparin 40 MG/0.4 ML Syringe SUBCUT SCH (09:37)
--- NOTE | 2018-03-06 09:43 | CR ---
Chest: Portable view of the chest was obtained. Comparison: No prior chest x-ray. Moderately large hiatal hernia is seen. Heart size and mediastinum are within normal limits. Tip of nasogastric tube lies within the stomach. Lungs are clear without acute parenchymal change. Scoliosis and degenerative change is noted within the spine. Impression: 1. Endotracheal tube with tip lying within the stomach. 2. Moderately large hiatal hernia. 3. Nothing acute is otherwise seen on portable chest x-ray. Diagnostic code #2
--- NOTE | 2018-03-06 09:43 | CT ---
CT abdomen and pelvis Technique: Multiple axial sections were obtained from above the dome of the diaphragm inferiorly through the pubic symphysis. Intravenous and oral contrast was utilized. Delayed images were obtained through the bladder. Comparison: No prior abdominal imaging is available. Findings: Large hiatal hernia is seen which contains contrast. Contrast noted throughout the stomach. Contrast noted within proximal dilated jejunal loops. Ileum appears decompressed. Findings compatible with fairly high-grade mid to distal small bowel obstruction. Incidental spigelian hernia is seen containing a loop of nondilated sigmoid colon on the left side. Visualized lung bases show nothing acute. Liver shows no focal parenchymal abnormality. Spleen appears within normal limits. Adrenal glands show no nodule. Pancreas appears within normal limits. Kidneys show symmetric contrast enhancement. Left ureter and left renal pelvis are slightly prominent but no etiology is seen for this finding. Right ureter is normal in size. Aorta shows atherosclerotic change without aneurysm. Atherosclerotic change continues into the iliac vessels. No retroperitoneal adenopathy or mesenteric abnormalities are seen. No pelvic mass or adenopathy is seen. Small fat-containing right inguinal hernia is noted. Small amount of free fluid seen within the pelvis. Delayed images show contrast within the bladder as well as within portions of the distal right and left ureters. Scoliosis and degenerative change noted within the spine. Appendix is seen which is normal in size. Impression: 1. Dilated jejunal loops compatible with mid to distal small bowel obstruction. Etiology for this finding is not identified. 2. Large hiatal hernia. 3. Spigelian hernia on the left side containing a loop of nondilated sigmoid colon. 4. Mildly dilated left renal pelvis and left ureter which is likely incidental as contrast is seen within the distal left ureter without findings of obstruction. 5. Other incidental findings. Diagnostic code #5 I agree with preliminary report issued by [facility] ([facility] report finalized on 03/05/18, 10:41 PM Central Time)
[2018-03-06] MEDS ORDERED: Benzocaine 20% Oral Spray 59.2 ML Canister MUCMEM PRN (13:00)
--- NOTE | 2018-03-06 14:09 | PCM.CONS ---
H&P History of Present Illness - General Date of Service: 03/06/18 Admit Problem/Dx: Admission Diagnosis/Problem Admission Diagnosis/Problem Small bowel obstruction Source of Information: Patient, Provider History Limitations: Reports: No Limitations - History of Present Illness Initial Comments - Free Text/Narative: Dirk is a 77-year-old female who presented to the emergency department complaining of lower quadrant abdominal pain. The patient states that she was feeling poorly yesterday, but prior to that was feeling well. She was passing gas yesterday and had a bowel movement yesterday. She was dilated in the emergency department and was diagnosed with a small bowel obstruction. She was admitted to the surgical floor where she was treated with nasogastric tube decompression and was made nothing by mouth. The patient did have some emesis, but this improved with manipulation and advancement of the NG tube. She reports no pain this am, but has not had any further flatus or BM. Lower Abdomen Pain Score (Numeric/FACES): 9 - Related Data Allergies/Adverse Reactions: Allergies Allergy/AdvReac Type Severity Reaction Status Date / Time No Known Allergies Allergy Verified 03/05/18 18:29 Home Medications: Home Meds . [No Known Home Meds] 03/05/18 [History] Past Medical History - Past Health History Medical/Surgical History: Denies Medical/Surgical History HEENT History: Reports: Cataract Cardiovascular History: Reports: Blood Clots/VTE/DVT, Other (See Below) Other Cardiovascular History: 2007 blood clot in leg Gastrointestinal History: Reports: Other (See Below) Other Gastrointestinal History: hernia [employer] History: Reports: Neurological History: Reports: Speech Problems, Other (See Below) Other Neuro History: at times can't say correct words, states this is her baseline. Psychiatric History: Reports: Depression Other Psychiatric History: hospitalized for psychiatric depression - Past Surgical History HEENT Surgical History: Reports: Cataract Surgery Cardiovascular Surgical History: Reports: None GI Surgical History: Reports: Appendectomy, Colonoscopy Social & Family History - Family History Cardiac: Denies: CT Neurological: Denies: CVA - Tobacco Use Smoking Status *Q: Former Smoker Used Tobacco, but Quit: Yes Month/Year Tobacco Last Used: 50 years ago - Caffeine Use Caffeine Use: Reports: Coffee - Recreational Drug Use Recreational Drug Use: No H&P Review of Systems - Review of Systems: Review Of Systems: See Below General: Reports: No Symptoms HEENT: Reports: No Symptoms Pulmonary: Reports: No Symptoms Cardiovascular: Reports: No Symptoms Gastrointestinal: Reports: Abdominal Pain Genitourinary: Reports: No Symptoms Musculoskeletal: Reports: No Symptoms Skin: Reports: No Symptoms Psychiatric: Reports: No Symptoms Neurological: Reports: No Symptoms Hematologic/Lymphatic: Reports: No Symptoms Immunologic: Reports: No Symptoms Exam - Exam Exam: See Below - Vital Signs Vital Signs: Last Vital Signs Temp 36.7 C 03/06/18 13:44 Pulse 77 03/06/18 13:44 Resp 16 03/06/18 13:44 BP 133/83 03/06/18 13:44 Pulse Ox 93 L 03/06/18 13:44 Weight: 64.909 kg - Exam General: Alert, Oriented HEENT: Conjunctiva Clear, EOMI, Other (NGT in place with light green-brown aspirate) Neck: Supple Lungs: Clear to Auscultation, Normal Respiratory Effort Cardiovascular: Regular Rate, Regular Rhythm GI/Abdominal Exam: Normal Bowel Sounds, Soft, No Mass, Tender Skin: Warm, Dry, Intact Neurological: Cranial Nerves Intact Psychiatric: Alert, Normal Affect, Normal Mood - Patient Data Lab Results Last 24 hrs: Laboratory Results - last 24 hr 03/05/18 03/05/18 03/05/18 Range/Units 18:30 18:30 18:30 WBC 12.14 H (3.98-10.04) K/mm3 RBC 4.45 (3.98-5.22) M/mm3 Hgb 13.8 (11.2-15.7) gm/L Hct 41.8 (34.1-44.9) % MCV 93.9 (79.4-94.8) fl MCH 31.0 (25.6-32.2) pg MCHC 33.0 (32.2-35.5) g/dl RDW Std Deviation 45.1 (36.4-46.3) fL Plt Count 373 H (182-369) K/mm3 MPV 9.3 L (9.4-12.3) fl Neut % (Auto) (34.0-71.1) % Lymph % (Auto) (19.3-51.7) % [place] % (Auto) (4.7-12.5) % Eos % (Auto) (0.7-5.8) Baso % (Auto) (0.1-1.2) % Neut # (Auto) (1.56-6.13) K/mm3 Lymph # (Auto) (1.18-3.74) K/mm3 [place] # (Auto) (0.24-0.36) K/mm3 Eos # (Auto) (0.04-0.36) K/mm3 Baso # (Auto) (0.01-0.08) K/mm3 Neutrophils % (Manual) 80 H (40-60) % Band Neutrophils % 1 (0-10) % Lymphocytes % (Manual) 14 L (20-40) % Atypical Lymphs % 0 % Monocytes % (Manual) 4 (2-10) % Eosinophils % (Manual) 1 (0.7-5.8) % Basophils % (Manual) 0 L (0.1-1.2) Platelet Estimate Adequate Plt Morphology Comment See note RBC Morph Comment Normal Sodium 141 (136-145) mEq/L Potassium 3.9 (3.5-5.1) mEq/L Chloride 103 (98-107) mEq/L Carbon Dioxide 28 (21-32) mEq/L Anion Gap 13.9 (5-15) BUN 11 (7-18) mg/dL Creatinine 0.7 (0.55-1.02) mg/dL Est Cr Clr Drug Dosing 54.79 mL/min Estimated GFR (MDRD) > 60 (>60) mL/min BUN/Creatinine Ratio 15.7 (14-18) Glucose 155 H (83-115) mg/dL POC Glucose (83-110) mg/dL Hemoglobin A1c (4.50-6.20) % Serum Osmolality 299 (280-300) mosm/kg Lactic Acid (0.4-2.0) mmol/L Calcium 9.2 (8.5-10.1) mg/dL Magnesium (1.8-2.4) mg/dl Total Bilirubin 1.1 H (0.2-1.0) mg/dL AST 18 (15-37) U/L ALT 22 (14-59) U/L Alkaline Phosphatase 73 (46-116) U/L C-Reactive Protein 0.4 (<1.0) mg/dL Total Protein 7.5 (6.4-8.2) g/dl Albumin 3.9 (3.4-5.0) g/dl Globulin 3.6 gm/dL Albumin/Globulin Ratio 1.1 (1-2) Lipase 74 (73-393) U/L Urine Color (Yellow) Urine Appearance (Clear) Urine pH (5.0-8.0) Ur Specific [place] (1.005-1.030) Urine Protein (Negative) Urine Glucose (UA) (Negative) Urine Ketones (Negative) Urine Occult Blood (Negative) Urine Nitrite (Negative) Urine Bilirubin (Negative) Urine Urobilinogen (0.2-1.0) Ur Leukocyte Esterase (Negative) Urine RBC (0-5) /hpf Urine WBC (0-5) /hpf Ur Epithelial Cells (0-5) /hpf Urine Bacteria (FEW) /hpf Urine Mucus (FEW) /hpf Ketones (0.0-0.3) mM 03/05/18 03/05/18 03/05/18 Range/Units 18:30 18:30 19:49 WBC (3.98-10.04) K/mm3 RBC (3.98-5.22) M/mm3 Hgb (11.2-15.7) gm/L Hct (34.1-44.9) % MCV (79.4-94.8) fl MCH (25.6-32.2) pg MCHC (32.2-35.5) g/dl RDW Std Deviation (36.4-46.3) fL Plt Count (182-369) K/mm3 MPV (9.4-12.3) fl Neut % (Auto) (34.0-71.1) % Lymph % (Auto) (19.3-51.7) % [place] % (Auto) (4.7-12.5) % Eos % (Auto) (0.7-5.8) Baso % (Auto) (0.1-1.2) % Neut # (Auto) (1.56-6.13) K/mm3 Lymph # (Auto) (1.18-3.74) K/mm3 [place] # (Auto) (0.24-0.36) K/mm3 Eos # (Auto) (0.04-0.36) K/mm3 Baso # (Auto) (0.01-0.08) K/mm3 Neutrophils % (Manual) (40-60) % Band Neutrophils % (0-10) % Lymphocytes % (Manual) (20-40) % Atypical Lymphs % % Monocytes % (Manual) (2-10) % Eosinophils % (Manual) (0.7-5.8) % Basophils % (Manual) (0.1-1.2) Platelet Estimate Plt Morphology Comment RBC Morph Comment Sodium (136-145) mEq/L Potassium (3.5-5.1) mEq/L Chloride (98-107) mEq/L Carbon Dioxide (21-32) mEq/L Anion Gap (5-15) BUN (7-18) mg/dL Creatinine (0.55-1.02) mg/dL Est Cr Clr Drug Dosing mL/min Estimated GFR (MDRD) (>60) mL/min BUN/Creatinine Ratio (14-18) Glucose (83-115) mg/dL POC Glucose (83-110) mg/dL Hemoglobin A1c 6.20 (4.50-6.20) % Serum Osmolality (280-300) mosm/kg Lactic Acid (0.4-2.0) mmol/L Calcium (8.5-10.1) mg/dL Magnesium (1.8-2.4) mg/dl Total Bilirubin (0.2-1.0) mg/dL AST (15-37) U/L ALT (14-59) U/L Alkaline Phosphatase (46-116) U/L C-Reactive Protein (<1.0) mg/dL Total Protein (6.4-8.2) g/dl Albumin (3.4-5.0) g/dl Globulin gm/dL Albumin/Globulin Ratio (1-2) Lipase (73-393) U/L Urine Color Yellow (Yellow) Urine Appearance Clear (Clear) Urine pH 6.5 (5.0-8.0) Ur Specific [place] 1.025 (1.005-1.030) Urine Protein 1+ H (Negative) Urine Glucose (UA) Negative (Negative) Urine Ketones 4+ H (Negative) Urine Occult Blood Trace-intact H (Negative) Urine Nitrite Negative (Negative) Urine Bilirubin Negative (Negative) Urine Urobilinogen 0.2 (0.2-1.0) Ur Leukocyte Esterase Trace H (Negative) Urine RBC 5-10 H (0-5) /hpf Urine WBC 5-10 H (0-5) /hpf Ur Epithelial Cells 0-5 (0-5) /hpf Urine Bacteria Few (FEW) /hpf Urine Mucus Few (FEW) /hpf Ketones 0.55 (0.0-0.3) mM 03/05/18 03/06/18 03/06/18 Range/Units 21:34 06:15 06:15 WBC 12.77 H (3.98-10.04) K/mm3 RBC 4.31 (3.98-5.22) M/mm3 Hgb 13.5 (11.2-15.7) gm/L Hct 40.3 (34.1-44.9) % MCV 93.5 (79.4-94.8) fl MCH 31.3 (25.6-32.2) pg MCHC 33.5 (32.2-35.5) g/dl RDW Std Deviation 45.1 (36.4-46.3) fL Plt Count 336 (182-369) K/mm3 MPV 9.5 (9.4-12.3) fl Neut % (Auto) 74.7 H (34.0-71.1) % Lymph % (Auto) 18.9 L (19.3-51.7) % [place] % (Auto) 5.8 (4.7-12.5) % Eos % (Auto) 0.2 L (0.7-5.8) Baso % (Auto) 0.2 (0.1-1.2) % Neut # (Auto) 9.55 H (1.56-6.13) K/mm3 Lymph # (Auto) 2.41 (1.18-3.74) K/mm3 [place] # (Auto) 0.74 H (0.24-0.36) K/mm3 Eos # (Auto) 0.03 L (0.04-0.36) K/mm3 Baso # (Auto) 0.02 (0.01-0.08) K/mm3 Neutrophils % (Manual) (40-60) % Band Neutrophils % (0-10) % Lymphocytes % (Manual) (20-40) % Atypical Lymphs % % Monocytes % (Manual) (2-10) % Eosinophils % (Manual) (0.7-5.8) % Basophils % (Manual) (0.1-1.2) Platelet Estimate Plt Morphology Comment RBC Morph Comment Sodium 140 (136-145) mEq/L Potassium 3.5 (3.5-5.1) mEq/L Chloride 104 (98-107) mEq/L Carbon Dioxide 25 (21-32) mEq/L Anion Gap 14.5 (5-15) BUN 9 (7-18) mg/dL Creatinine 0.6 (0.55-1.02) mg/dL Est Cr Clr Drug Dosing 63.92 mL/min Estimated GFR (MDRD) > 60 (>60) mL/min BUN/Creatinine Ratio 15.0 (14-18) Glucose 127 H (83-115) mg/dL POC Glucose (83-110) mg/dL Hemoglobin A1c (4.50-6.20) % Serum Osmolality (280-300) mosm/kg Lactic Acid 1.2 (0.4-2.0) mmol/L Calcium 8.7 (8.5-10.1) mg/dL Magnesium 2.1 (1.8-2.4) mg/dl Total Bilirubin (0.2-1.0) mg/dL AST (15-37) U/L ALT (14-59) U/L Alkaline Phosphatase (46-116) U/L C-Reactive Protein (<1.0) mg/dL Total Protein (6.4-8.2) g/dl Albumin (3.4-5.0) g/dl Globulin gm/dL Albumin/Globulin Ratio (1-2) Lipase (73-393) U/L Urine Color (Yellow) Urine Appearance (Clear) Urine pH (5.0-8.0) Ur Specific [place] (1.005-1.030) Urine Protein (Negative) Urine Glucose (UA) (Negative) Urine Ketones (Negative) Urine Occult Blood (Negative) Urine Nitrite (Negative) Urine Bilirubin (Negative) Urine Urobilinogen (0.2-1.0) Ur Leukocyte Esterase (Negative) Urine RBC (0-5) /hpf Urine WBC (0-5) /hpf Ur Epithelial Cells (0-5) /hpf Urine Bacteria (FEW) /hpf Urine Mucus (FEW) /hpf Ketones (0.0-0.3) mM 03/06/18 03/06/18 Range/Units 06:18 13:41 WBC (3.98-10.04) K/mm3 RBC (3.98-5.22) M/mm3 Hgb (11.2-15.7) gm/L Hct (34.1-44.9) % MCV (79.4-94.8) fl MCH (25.6-32.2) pg MCHC (32.2-35.5) g/dl RDW Std Deviation (36.4-46.3) fL Plt Count (182-369) K/mm3 MPV (9.4-12.3) fl Neut % (Auto) (34.0-71.1) % Lymph % (Auto) (19.3-51.7) % [place] % (Auto) (4.7-12.5) % Eos % (Auto) (0.7-5.8) Baso % (Auto) (0.1-1.2) % Neut # (Auto) (1.56-6.13) K/mm3 Lymph # (Auto) (1.18-3.74) K/mm3 [place] # (Auto) (0.24-0.36) K/mm3 Eos # (Auto) (0.04-0.36) K/mm3 Baso # (Auto) (0.01-0.08) K/mm3 Neutrophils % (Manual) (40-60) % Band Neutrophils % (0-10) % Lymphocytes % (Manual) (20-40) % Atypical Lymphs % % Monocytes % (Manual) (2-10) % Eosinophils % (Manual) (0.7-5.8) % Basophils % (Manual) (0.1-1.2) Platelet Estimate Plt Morphology Comment RBC Morph Comment Sodium (136-145) mEq/L Potassium (3.5-5.1) mEq/L Chloride (98-107) mEq/L Carbon Dioxide (21-32) mEq/L Anion Gap (5-15) BUN (7-18) mg/dL Creatinine (0.55-1.02) mg/dL Est Cr Clr Drug Dosing mL/min Estimated GFR (MDRD) (>60) mL/min BUN/Creatinine Ratio (14-18) Glucose (83-115) mg/dL POC Glucose 119 H (83-110) mg/dL Hemoglobin A1c 6.00 (4.50-6.20) % Serum Osmolality (280-300) mosm/kg Lactic Acid (0.4-2.0) mmol/L Calcium (8.5-10.1) mg/dL Magnesium (1.8-2.4) mg/dl Total Bilirubin (0.2-1.0) mg/dL AST (15-37) U/L ALT (14-59) U/L Alkaline Phosphatase (46-116) U/L C-Reactive Protein (<1.0) mg/dL Total Protein (6.4-8.2) g/dl Albumin (3.4-5.0) g/dl Globulin gm/dL Albumin/Globulin Ratio (1-2) Lipase (73-393) U/L Urine Color (Yellow) Urine Appearance (Clear) Urine pH (5.0-8.0) Ur Specific [place] (1.005-1.030) Urine Protein (Negative) Urine Glucose (UA) (Negative) Urine Ketones (Negative) Urine Occult Blood (Negative) Urine Nitrite (Negative) Urine Bilirubin (Negative) Urine Urobilinogen (0.2-1.0) Ur Leukocyte Esterase (Negative) Urine RBC (0-5) /hpf Urine WBC (0-5) /hpf Ur Epithelial Cells (0-5) /hpf Urine Bacteria (FEW) /hpf Urine Mucus (FEW) /hpf Ketones (0.0-0.3) mM Result Diagrams: 03/06/18 06:15 03/06/18 06:15 [facility] Results Last 24 hrs: Microbiology 03/05/18 19:49 Urine Culture - Preliminary Urine, Voided MIXED SIMBA DAY 1 Consult PN Assessment/Plan Procedures: Procedures CARDIOVASCULAR STRESS TEST (02/07/17) CULTURE OTHR SPECIMN AEROBIC (05/11/15) HT MUSCLE IMAGE SPECT MULT (02/07/17) (1) Small bowel obstruction SNOMED Code(s): 660553172 Code(s): K56.609 - UNSP INTESTNL OBST, UNSP TO PARTIAL VERSUS COMPLETE OBST Current Visit: Yes Problem List Initiated/Reviewed/Updated: Yes Plan: 77 y/o female with small bowel obstruction - recommend nonoperative management at this point. continue serial abdominal exams and NGT decompression - minimize narcotics - NPO with IVF rehyration - recommend daily CBC and BMP - will follow Thank you for this consult. Please contact me for any questions or concerns. Salena Greenfield MD General Surgery
--- NOTE | 2018-03-07 06:47 | PCM.PN ---
- General Info Date of Service: 03/07/18 Admission Dx/Problem (Free Text): Admission Diagnosis/Problem Admission Diagnosis/Problem Small bowel obstruction Subjective Update: In to see Jaz. She is doing much better today and looks much more comfortable. Minimal output in her NG tube. recommends a enema to try to help facilitate a BM. Does not recommend any pro-kinetics at this time. Jaz reports her pain is very minimal to gone. She has been ambulating frequently. She has no other concerns. No nursing concerns. Functional Status: Reports: Pain Controlled, Tolerating Diet, Ambulating, Urinating. Denies: New Symptoms - Review of Systems General: Reports: Weakness, Fatigue. Denies: Fever, Malaise, Chills HEENT: Reports: Sore Throat (from NG tube - improved ) Pulmonary: Reports: No Symptoms. Denies: Shortness of Breath, Cough, Sputum, Wheezing Cardiovascular: Reports: No Symptoms. Denies: Chest Pain, Dyspnea on Exertion, Lightheadedness Gastrointestinal: Reports: Decreased Appetite, Flatus. Denies: Abdominal Pain, Constipation, Diarrhea, Nausea, Vomiting Genitourinary: Reports: No Symptoms Musculoskeletal: Reports: No Symptoms Skin: Reports: No Symptoms Neurological: Reports: No Symptoms Psychiatric: Reports: No Symptoms - Patient Data Vitals - Most Recent: Last Vital Signs Temp 98.8 F 03/07/18 02:59 Pulse 79 03/07/18 02:59 Resp 18 03/07/18 02:59 BP 134/77 03/07/18 02:59 Pulse Ox 95 03/07/18 02:59 Weight - Most Recent: 143 lb I&O - Last 24 Hours: Intake & Output 03/06/18 03/06/18 03/07/18 14:59 22:59 06:59 Intake Total 1305 961 Output Total 750 50 Balance 555 911 Lab Results Last 24 Hours: Laboratory Results - last 24 hr 03/06/18 03/06/18 03/06/18 Range/Units 06:15 06:15 06:18 WBC 12.77 H (3.98-10.04) K/mm3 RBC 4.31 (3.98-5.22) M/mm3 Hgb 13.5 (11.2-15.7) gm/L Hct 40.3 (34.1-44.9) % MCV 93.5 (79.4-94.8) fl MCH 31.3 (25.6-32.2) pg MCHC 33.5 (32.2-35.5) g/dl RDW Std Deviation 45.1 (36.4-46.3) fL Plt Count 336 (182-369) K/mm3 MPV 9.5 (9.4-12.3) fl Neut % (Auto) 74.7 H (34.0-71.1) % Lymph % (Auto) 18.9 L (19.3-51.7) % [place] % (Auto) 5.8 (4.7-12.5) % Eos % (Auto) 0.2 L (0.7-5.8) Baso % (Auto) 0.2 (0.1-1.2) % Neut # (Auto) 9.55 H (1.56-6.13) K/mm3 Lymph # (Auto) 2.41 (1.18-3.74) K/mm3 [place] # (Auto) 0.74 H (0.24-0.36) K/mm3 Eos # (Auto) 0.03 L (0.04-0.36) K/mm3 Baso # (Auto) 0.02 (0.01-0.08) K/mm3 Sodium 140 (136-145) mEq/L Potassium 3.5 (3.5-5.1) mEq/L Chloride 104 (98-107) mEq/L Carbon Dioxide 25 (21-32) mEq/L Anion Gap 14.5 (5-15) BUN 9 (7-18) mg/dL Creatinine 0.6 (0.55-1.02) mg/dL Est Cr Clr Drug Dosing 63.92 mL/min Estimated GFR (MDRD) > 60 (>60) mL/min BUN/Creatinine Ratio 15.0 (14-18) Glucose 127 H (83-115) mg/dL POC Glucose (83-110) mg/dL Hemoglobin A1c 6.00 (4.50-6.20) % Calcium 8.7 (8.5-10.1) mg/dL Magnesium 2.1 (1.8-2.4) mg/dl 03/06/18 03/06/18 03/07/18 Range/Units 13:41 18:48 00:24 WBC (3.98-10.04) K/mm3 RBC (3.98-5.22) M/mm3 Hgb (11.2-15.7) gm/L Hct (34.1-44.9) % MCV (79.4-94.8) fl MCH (25.6-32.2) pg MCHC (32.2-35.5) g/dl RDW Std Deviation (36.4-46.3) fL Plt Count (182-369) K/mm3 MPV (9.4-12.3) fl Neut % (Auto) (34.0-71.1) % Lymph % (Auto) (19.3-51.7) % [place] % (Auto) (4.7-12.5) % Eos % (Auto) (0.7-5.8) Baso % (Auto) (0.1-1.2) % Neut # (Auto) (1.56-6.13) K/mm3 Lymph # (Auto) (1.18-3.74) K/mm3 [place] # (Auto) (0.24-0.36) K/mm3 Eos # (Auto) (0.04-0.36) K/mm3 Baso # (Auto) (0.01-0.08) K/mm3 Sodium (136-145) mEq/L Potassium (3.5-5.1) mEq/L Chloride (98-107) mEq/L Carbon Dioxide (21-32) mEq/L Anion Gap (5-15) BUN (7-18) mg/dL Creatinine (0.55-1.02) mg/dL Est Cr Clr Drug Dosing mL/min Estimated GFR (MDRD) (>60) mL/min BUN/Creatinine Ratio (14-18) Glucose (83-115) mg/dL POC Glucose 119 H 109 96 (83-110) mg/dL Hemoglobin A1c (4.50-6.20) % Calcium (8.5-10.1) mg/dL Magnesium (1.8-2.4) mg/dl 03/07/18 Range/Units 06:14 WBC (3.98-10.04) K/mm3 RBC (3.98-5.22) M/mm3 Hgb (11.2-15.7) gm/L Hct (34.1-44.9) % MCV (79.4-94.8) fl MCH (25.6-32.2) pg MCHC (32.2-35.5) g/dl RDW Std Deviation (36.4-46.3) fL Plt Count (182-369) K/mm3 MPV (9.4-12.3) fl Neut % (Auto) (34.0-71.1) % Lymph % (Auto) (19.3-51.7) % [place] % (Auto) (4.7-12.5) % Eos % (Auto) (0.7-5.8) Baso % (Auto) (0.1-1.2) % Neut # (Auto) (1.56-6.13) K/mm3 Lymph # (Auto) (1.18-3.74) K/mm3 [place] # (Auto) (0.24-0.36) K/mm3 Eos # (Auto) (0.04-0.36) K/mm3 Baso # (Auto) (0.01-0.08) K/mm3 Sodium (136-145) mEq/L Potassium (3.5-5.1) mEq/L Chloride (98-107) mEq/L Carbon Dioxide (21-32) mEq/L Anion Gap (5-15) BUN (7-18) mg/dL Creatinine (0.55-1.02) mg/dL Est Cr Clr Drug Dosing mL/min Estimated GFR (MDRD) (>60) mL/min BUN/Creatinine Ratio (14-18) Glucose (83-115) mg/dL POC Glucose 100 (83-110) mg/dL Hemoglobin A1c (4.50-6.20) % Calcium (8.5-10.1) mg/dL Magnesium (1.8-2.4) mg/dl Faraz Results Last 24 Hours: Microbiology 03/05/18 19:49 Urine Culture - Preliminary Urine, Voided MIXED SIMBA DAY 1 Med Orders - Current: Current Medications Acetaminophen (Tylenol) 650 mg RECTAL Q4H PRN PRN Reason: Pain (mild 1-3) Benzocaine (Hurricaine 20% [place]) 0 ml MUCMEM Q4HR PRN PRN Reason: throat pain Last Admin: 03/07/18 06:11 Dose: 1 applic Benzocaine/Menthol (Cepacol Sore Throat) 1 lozenge MUCMEM Q4HR PRN PRN Reason: throat irritation Last Admin: 03/06/18 09:33 Dose: 1 lozenge Enoxaparin Sodium (Lovenox) 40 mg SUBCUT DAILY [facility] Last Admin: 03/06/18 09:37 Dose: 40 mg Hydralazine HCl (Apresoline) 20 mg IVPUSH Q4H PRN PRN Reason: Hypertension Hydromorphone HCl (Dilaudid) 0.5 mg IVPUSH Q4H PRN PRN Reason: Pain Last Admin: 03/06/18 17:13 Dose: 0.5 mg Dextrose/Sodium Chloride (Dextrose 5%-Normal Saline) 1,000 mls @ 75 mls/hr IV ASDIRECTED [facility] Last Admin: 03/06/18 18:49 Dose: 75 mls/hr Lorazepam (Ativan) 0.5 mg IVPUSH Q8H PRN PRN Reason: anxiety/insomnia Metoprolol Tartrate (Lopressor) 5 mg IVPUSH Q4H PRN PRN Reason: Tachycardia Ondansetron HCl (Zofran) 4 mg IV Q6H PRN PRN Reason: Nausea/Vomiting Pantoprazole Sodium (Protonix Iv) 40 mg IV DAILY [facility] Last Admin: 03/06/18 09:33 Dose: 40 mg Sodium Chloride (Saline Flush) 10 ml FLUSH ASDIRECTED PRN PRN Reason: Keep Vein Open Last Admin: 03/05/18 20:13 Dose: 10 ml Discontinued Medications Diatrizoate Meglum/Diatrizoate Sod (Gastrografin 37%) 120 ml PO ONETIME ONE Stop: 03/05/18 19:28 Last Admin: 03/05/18 20:13 Dose: 120 ml Hydromorphone HCl (Dilaudid) 0.5 mg IVPUSH ONETIME ONE Stop: 03/05/18 19:52 Last Admin: 03/05/18 19:58 Dose: 0.5 mg Hydromorphone HCl (Dilaudid) Confirm Administered Dose 0.5 mg .ROUTE .STK-MED ONE Stop: 03/05/18 19:56 Last Admin: 03/05/18 19:59 Dose: Not Given Hydromorphone HCl (Dilaudid) 0.5 mg IVPUSH ONETIME ONE Stop: 03/05/18 21:56 Last Admin: 03/05/18 23:10 Dose: Not Given Hydromorphone HCl (Dilaudid) Confirm Administered Dose 0.5 mg .ROUTE .STK-MED ONE Stop: 03/05/18 22:04 Last Admin: 03/05/18 22:08 Dose: 0.5 mg Sodium Chloride (Normal Saline) 1,000 mls @ 999 mls/hr IV ONETIME ONE Stop: 03/05/18 20:52 Last Admin: 03/05/18 19:59 Dose: 999 mls/hr Sodium Chloride (Normal Saline) Confirm Administered Dose 1,000 mls @ as directed .ROUTE .STK-MED ONE Stop: 03/05/18 19:55 Last Admin: 03/05/18 20:30 Dose: Not Given Sodium Chloride (Normal Saline) 1,000 mls @ 125 mls/hr IV ONETIME ONE Stop: 03/06/18 05:53 Last Admin: 03/05/18 23:10 Dose: 125 mls/hr Iopamidol (Isovue-300 (61%)) 100 ml IVPUSH ONETIME ONE Stop: 03/05/18 19:28 Last Admin: 03/05/18 20:13 Dose: 100 ml Lidocaine HCl (Xylocaine 2% Jelly) Confirm Administered Dose 10 ml .ROUTE .STK- MED ONE Stop: 03/05/18 22:24 Last Admin: 03/05/18 23:11 Dose: Not Given Lidocaine HCl (Xylocaine 2% Jelly) 10 ml MUCMEM ONETIME ONE Stop: 03/05/18 23:12 Last Admin: 03/05/18 23:11 Dose: 10 ml Ondansetron HCl (Zofran) 4 mg IVPUSH ONETIME ONE Stop: 03/05/18 18:52 Last Admin: 03/05/18 18:56 Dose: 4 mg Ondansetron HCl (Zofran) 4 mg IVPUSH ONETIME ONE Stop: 03/05/18 21:56 Last Admin: 03/05/18 22:08 Dose: 4 mg Pantoprazole Sodium (Protonix Iv) 40 mg IVPUSH ONETIME ONE Stop: 03/06/18 01:01 Last Admin: 03/06/18 01:04 Dose: 40 mg - Exam Quality Assessment: DVT Prophylaxis General: Alert, Oriented, Cooperative, No Acute Distress HEENT: Pupils Equal, Pupils Reactive, EOMI, Mucous Membr. Moist/[place] Neck: Supple, Trachea Midline Lungs: Clear to Auscultation, Normal Respiratory Effort Cardiovascular: Regular Rate, Regular Rhythm GI/Abdominal Exam: Soft, Non-Tender, No Distention, No Mass, Abnormal Bowel Sounds (hyperactive ) (Female) Exam: Deferred Back Exam: Normal Inspection, Full Range of Motion Extremities: Normal Inspection, Normal Range of Motion, Non-Tender, No Pedal Edema, Normal Capillary Refill Peripheral Pulses: 3+: Radial (L), Radial (R), Posterior Tibial (L), Posterior Tibial (R), Dorsalis Pedis (L), Dorsalis Pedis (R) Skin: Warm, Dry, Intact Neurological: No New Focal Deficit Psy/Mental Status: Alert, Normal Affect, Normal Mood - Problem List & Annotations (1) Small bowel obstruction SNOMED Code(s): 870692210 Code(s): K56.609 - UNSP INTESTNL OBST, UNSP TO PARTIAL VERSUS COMPLETE OBST Status: Acute Current Visit: Yes (2) Constipation SNOMED Code(s): 63584278 Code(s): K59.00 - CONSTIPATION, UNSPECIFIED Status: Chronic Priority: Low Current Visit: No Qualifiers: Constipation type: unspecified constipation type Qualified Code(s): K59.00 - Constipation, unspecified - Problem List Review Problem List Initiated/Reviewed/Updated: Yes - My Orders Last 24 Hours: My Active Orders 03/06/18 06:26 Height and Weight [RC] 04 Intake and Output [RC] 04,16 Up With Assistance [RC] ASDIRECTED Up to Chair [RC] ASDIRECTED VTE/DVT Education [RC] 10,22 Vital Signs [RC] 09,15,21,03 OT Evaluation and Treatment [CONS] Routine PT Evaluation and Treatment [CONS] Routine Acetaminophen [Tylenol] 650 mg RECTAL Q4H PRN Ondansetron [Zofran] 4 mg IV Q6H PRN 03/06/18 06:30 Metoprolol Tartrate [Lopressor] 5 mg IVPUSH Q4H PRN hydrALAZINE [Apresoline] 20 mg IVPUSH Q4H PRN 03/06/18 06:45 Dextrose 5%-0.9% NaCl [Dextrose 5%-Normal Saline] 1,000 ml IV ASDIRECTED 03/06/18 06:54 Blood Glucose Check, Bedside [RC] Q6HR 03/06/18 07:19 Benzocaine/Cetylpyrd/Menthol [Cepacol Sore Throat] 1 lozenge MUCMEM Q4HR PRN 03/06/18 09:00 Pantoprazole [ProTONIX IV] 40 mg IV DAILY 03/06/18 13:00 Benzocaine [Hurricaine 20% [place]] 0 ml MUCMEM Q4HR PRN 03/06/18 15:13 Ambulate [RC] ASDIRECTED 03/07/18 05:11 BASIC METABOLIC PANEL,BMP [CHEM] AM CBC WITH AUTO DIFF [HEME] AM CRP [C-REACTIVE PROTEIN] [CHEM] AM LACTIC ACID [CHEM] AM MAGNESIUM [CHEM] AM 03/08/18 05:11 BASIC METABOLIC PANEL,BMP [CHEM] AM CBC WITH AUTO DIFF [HEME] AM CRP [C-REACTIVE PROTEIN] [CHEM] AM LACTIC ACID [CHEM] AM MAGNESIUM [CHEM] AM 03/09/18 05:11 BASIC METABOLIC PANEL,BMP [CHEM] AM CBC WITH AUTO DIFF [HEME] AM CRP [C-REACTIVE PROTEIN] [CHEM] AM LACTIC ACID [CHEM] AM MAGNESIUM [CHEM] AM 03/10/18 05:11 BASIC METABOLIC PANEL,BMP [CHEM] AM CBC WITH AUTO DIFF [HEME] AM CRP [C-REACTIVE PROTEIN] [CHEM] AM LACTIC ACID [CHEM] AM MAGNESIUM [CHEM] AM - Plan Plan:: I/P: Acute: SBO -Reports abdominal pain started around 0300 on 03/05/18 -Progressed to nausea and vomiting -Denies fever or chills, denies prior history of SBO -Reports prior appendectomy and colonoscopy 10+ years ago with polyps removed ; hx/o chronic constipation -Has current hernia which produces pain with heavy lifting -WBC 12.14 -CRP 0.4 -Lactic acid 1.2 -CT scan suggests SBO with transition point in mid pelvis, No mucosal thickening, Large hiatal hernia on left lower abdomen -NG tube placed in ED - continue with low intermittent suction -Pain medications as ordered - avoid opioids if possible -NPO with ice chips -D5NS with glucose checks Q6hr due to NPO -IV protonix -GS consulted in ED - Dr. Long Lujan -Ambulate -Anti-emetics as needed -Enema "Pre-Diabetic" -Blood glucose 155 in ED -A1C 6.2 -Briefly discussed lifestyle changes -PCP to monitor and follow-up on after discharge Chronic: Constipation Plan: Admit to medical floor on telemetry Other orders as indicated above PT/OT Routine AM labs DVT prophylaxis: Lovenox GI prophylaxis: Protonix Code Status: Full code; PCP: Dr. Hong
--- NOTE | 2018-03-07 07:24 | PCM.CONSN ---
- General Info Date of Service: 03/07/18 Admission Dx/Problem (Free Text): Small bowel obstruction Subjective Update: Pt reports improved symptoms today- less nausea. No pain. Passed flatus x2 Functional Status: Reports: Pain Controlled - Patient Data Vitals - Most Recent: Last Vital Signs Temp 37.1 C 03/07/18 02:59 Pulse 79 03/07/18 02:59 Resp 18 03/07/18 02:59 BP 134/77 03/07/18 02:59 Pulse Ox 95 03/07/18 02:59 Weight - Most Recent: 64.864 kg I&O - Last 24 Hours: Intake & Output 03/06/18 03/07/18 03/07/18 22:59 06:59 14:59 Intake Total 1305 996 Output Total 750 50 Balance 555 946 Lab Results Last 24 Hours: Laboratory Results - last 24 hr 03/06/18 03/06/18 03/06/18 Range/Units 06:15 06:15 06:18 WBC 12.77 H (3.98-10.04) K/mm3 RBC 4.31 (3.98-5.22) M/mm3 Hgb 13.5 (11.2-15.7) gm/L Hct 40.3 (34.1-44.9) % MCV 93.5 (79.4-94.8) fl MCH 31.3 (25.6-32.2) pg MCHC 33.5 (32.2-35.5) g/dl RDW Std Deviation 45.1 (36.4-46.3) fL Plt Count 336 (182-369) K/mm3 MPV 9.5 (9.4-12.3) fl Neut % (Auto) 74.7 H (34.0-71.1) % Lymph % (Auto) 18.9 L (19.3-51.7) % [place] % (Auto) 5.8 (4.7-12.5) % Eos % (Auto) 0.2 L (0.7-5.8) Baso % (Auto) 0.2 (0.1-1.2) % Neut # (Auto) 9.55 H (1.56-6.13) K/mm3 Lymph # (Auto) 2.41 (1.18-3.74) K/mm3 [place] # (Auto) 0.74 H (0.24-0.36) K/mm3 Eos # (Auto) 0.03 L (0.04-0.36) K/mm3 Baso # (Auto) 0.02 (0.01-0.08) K/mm3 Sodium 140 (136-145) mEq/L Potassium 3.5 (3.5-5.1) mEq/L Chloride 104 (98-107) mEq/L Carbon Dioxide 25 (21-32) mEq/L Anion Gap 14.5 (5-15) BUN 9 (7-18) mg/dL Creatinine 0.6 (0.55-1.02) mg/dL Est Cr Clr Drug Dosing 63.92 mL/min Estimated GFR (MDRD) > 60 (>60) mL/min BUN/Creatinine Ratio 15.0 (14-18) Glucose 127 H (83-115) mg/dL POC Glucose (83-110) mg/dL Hemoglobin A1c 6.00 (4.50-6.20) % Calcium 8.7 (8.5-10.1) mg/dL Magnesium 2.1 (1.8-2.4) mg/dl 03/06/18 03/06/18 03/07/18 Range/Units 13:41 18:48 00:24 WBC (3.98-10.04) K/mm3 RBC (3.98-5.22) M/mm3 Hgb (11.2-15.7) gm/L Hct (34.1-44.9) % MCV (79.4-94.8) fl MCH (25.6-32.2) pg MCHC (32.2-35.5) g/dl RDW Std Deviation (36.4-46.3) fL Plt Count (182-369) K/mm3 MPV (9.4-12.3) fl Neut % (Auto) (34.0-71.1) % Lymph % (Auto) (19.3-51.7) % [place] % (Auto) (4.7-12.5) % Eos % (Auto) (0.7-5.8) Baso % (Auto) (0.1-1.2) % Neut # (Auto) (1.56-6.13) K/mm3 Lymph # (Auto) (1.18-3.74) K/mm3 [place] # (Auto) (0.24-0.36) K/mm3 Eos # (Auto) (0.04-0.36) K/mm3 Baso # (Auto) (0.01-0.08) K/mm3 Sodium (136-145) mEq/L Potassium (3.5-5.1) mEq/L Chloride (98-107) mEq/L Carbon Dioxide (21-32) mEq/L Anion Gap (5-15) BUN (7-18) mg/dL Creatinine (0.55-1.02) mg/dL Est Cr Clr Drug Dosing mL/min Estimated GFR (MDRD) (>60) mL/min BUN/Creatinine Ratio (14-18) Glucose (83-115) mg/dL POC Glucose 119 H 109 96 (83-110) mg/dL Hemoglobin A1c (4.50-6.20) % Calcium (8.5-10.1) mg/dL Magnesium (1.8-2.4) mg/dl 03/07/18 Range/Units 06:14 WBC (3.98-10.04) K/mm3 RBC (3.98-5.22) M/mm3 Hgb (11.2-15.7) gm/L Hct (34.1-44.9) % MCV (79.4-94.8) fl MCH (25.6-32.2) pg MCHC (32.2-35.5) g/dl RDW Std Deviation (36.4-46.3) fL Plt Count (182-369) K/mm3 MPV (9.4-12.3) fl Neut % (Auto) (34.0-71.1) % Lymph % (Auto) (19.3-51.7) % [place] % (Auto) (4.7-12.5) % Eos % (Auto) (0.7-5.8) Baso % (Auto) (0.1-1.2) % Neut # (Auto) (1.56-6.13) K/mm3 Lymph # (Auto) (1.18-3.74) K/mm3 [place] # (Auto) (0.24-0.36) K/mm3 Eos # (Auto) (0.04-0.36) K/mm3 Baso # (Auto) (0.01-0.08) K/mm3 Sodium (136-145) mEq/L Potassium (3.5-5.1) mEq/L Chloride (98-107) mEq/L Carbon Dioxide (21-32) mEq/L Anion Gap (5-15) BUN (7-18) mg/dL Creatinine (0.55-1.02) mg/dL Est Cr Clr Drug Dosing mL/min Estimated GFR (MDRD) (>60) mL/min BUN/Creatinine Ratio (14-18) Glucose (83-115) mg/dL POC Glucose 100 (83-110) mg/dL Hemoglobin A1c (4.50-6.20) % Calcium (8.5-10.1) mg/dL Magnesium (1.8-2.4) mg/dl Faraz Results Last 24 Hours: Microbiology 03/05/18 19:49 Urine Culture - Preliminary Urine, Voided MIXED SIMBA DAY 1 Med Orders - Current: Current Medications Acetaminophen (Tylenol) 650 mg RECTAL Q4H PRN PRN Reason: Pain (mild 1-3) Benzocaine (Hurricaine 20% [place]) 0 ml MUCMEM Q4HR PRN PRN Reason: throat pain Last Admin: 03/07/18 06:11 Dose: 1 applic Benzocaine/Menthol (Cepacol Sore Throat) 1 lozenge MUCMEM Q4HR PRN PRN Reason: throat irritation Last Admin: 03/06/18 09:33 Dose: 1 lozenge Enoxaparin Sodium (Lovenox) 40 mg SUBCUT DAILY [facility] Last Admin: 03/06/18 09:37 Dose: 40 mg Hydralazine HCl (Apresoline) 20 mg IVPUSH Q4H PRN PRN Reason: Hypertension Hydromorphone HCl (Dilaudid) 0.5 mg IVPUSH Q4H PRN PRN Reason: Pain Last Admin: 03/06/18 17:13 Dose: 0.5 mg Dextrose/Sodium Chloride (Dextrose 5%-Normal Saline) 1,000 mls @ 75 mls/hr IV ASDIRECTED [facility] Last Admin: 03/06/18 18:49 Dose: 75 mls/hr Lorazepam (Ativan) 0.5 mg IVPUSH Q8H PRN PRN Reason: anxiety/insomnia Metoprolol Tartrate (Lopressor) 5 mg IVPUSH Q4H PRN PRN Reason: Tachycardia Ondansetron HCl (Zofran) 4 mg IV Q6H PRN PRN Reason: Nausea/Vomiting Pantoprazole Sodium (Protonix Iv) 40 mg IV DAILY [facility] Last Admin: 03/06/18 09:33 Dose: 40 mg Sodium Chloride (Saline Flush) 10 ml FLUSH ASDIRECTED PRN PRN Reason: Keep Vein Open Last Admin: 03/05/18 20:13 Dose: 10 ml Discontinued Medications Diatrizoate Meglum/Diatrizoate Sod (Gastrografin 37%) 120 ml PO ONETIME ONE Stop: 03/05/18 19:28 Last Admin: 03/05/18 20:13 Dose: 120 ml Hydromorphone HCl (Dilaudid) 0.5 mg IVPUSH ONETIME ONE Stop: 03/05/18 19:52 Last Admin: 03/05/18 19:58 Dose: 0.5 mg Hydromorphone HCl (Dilaudid) Confirm Administered Dose 0.5 mg .ROUTE .STK-MED ONE Stop: 03/05/18 19:56 Last Admin: 03/05/18 19:59 Dose: Not Given Hydromorphone HCl (Dilaudid) 0.5 mg IVPUSH ONETIME ONE Stop: 03/05/18 21:56 Last Admin: 03/05/18 23:10 Dose: Not Given Hydromorphone HCl (Dilaudid) Confirm Administered Dose 0.5 mg .ROUTE .STK-MED ONE Stop: 03/05/18 22:04 Last Admin: 03/05/18 22:08 Dose: 0.5 mg Sodium Chloride (Normal Saline) 1,000 mls @ 999 mls/hr IV ONETIME ONE Stop: 03/05/18 20:52 Last Admin: 03/05/18 19:59 Dose: 999 mls/hr Sodium Chloride (Normal Saline) Confirm Administered Dose 1,000 mls @ as directed .ROUTE .STK-MED ONE Stop: 03/05/18 19:55 Last Admin: 03/05/18 20:30 Dose: Not Given Sodium Chloride (Normal Saline) 1,000 mls @ 125 mls/hr IV ONETIME ONE Stop: 03/06/18 05:53 Last Admin: 03/05/18 23:10 Dose: 125 mls/hr Iopamidol (Isovue-300 (61%)) 100 ml IVPUSH ONETIME ONE Stop: 03/05/18 19:28 Last Admin: 03/05/18 20:13 Dose: 100 ml Lidocaine HCl (Xylocaine 2% Jelly) Confirm Administered Dose 10 ml .ROUTE .STK- MED ONE Stop: 03/05/18 22:24 Last Admin: 03/05/18 23:11 Dose: Not Given Lidocaine HCl (Xylocaine 2% Jelly) 10 ml MUCMEM ONETIME ONE Stop: 03/05/18 23:12 Last Admin: 03/05/18 23:11 Dose: 10 ml Ondansetron HCl (Zofran) 4 mg IVPUSH ONETIME ONE Stop: 03/05/18 18:52 Last Admin: 03/05/18 18:56 Dose: 4 mg Ondansetron HCl (Zofran) 4 mg IVPUSH ONETIME ONE Stop: 03/05/18 21:56 Last Admin: 03/05/18 22:08 Dose: 4 mg Pantoprazole Sodium (Protonix Iv) 40 mg IVPUSH ONETIME ONE Stop: 03/06/18 01:01 Last Admin: 03/06/18 01:04 Dose: 40 mg - Exam General: Alert, Oriented HEENT: Other (NGT in place with thin green aspirate) Lungs: Normal Respiratory Effort GI/Abdominal Exam: Soft, Tender (mild tenderness to palpation in lower quadrants ) Consult PN Assessment/Plan Procedures: Procedures CARDIOVASCULAR STRESS TEST (02/07/17) CULTURE OTHR SPECIMN AEROBIC (05/11/15) HT MUSCLE IMAGE SPECT MULT (02/07/17) (1) Small bowel obstruction SNOMED Code(s): 779411633 Code(s): K56.609 - UNSP INTESTNL OBST, UNSP TO PARTIAL VERSUS COMPLETE OBST Current Visit: Yes Problem List Initiated/Reviewed/Updated: Yes My Orders Last 24 Hours: 77 y/o lady presents with small bowel obstruction. Clinically resolving as pt has flatus - recommend keeping NGT in place until pt passes stool - may perform enema as needed since pt has baseline constipation - recommend daily CBC to document improvement of leukocytosis Will follow Salena Greenfield MD General surgery
[2018-03-07] MEDS: Enoxaparin 40 MG/0.4 ML Syringe SUBCUT SCH (08:11)
[2018-03-07] MEDS: Benzocaine/Cetylpyridinium/Menthol Lozenge MUCMEM PRN ×2 (08:11→15:24)
[2018-03-07] MEDS: Pantoprazole 40 MG Vial IV SCH (08:11)
[2018-03-07] MEDS: Dextrose 5%-0.9% NaCl 1,000 ML IV SCH (08:45)
--- NOTE | 2018-03-08 07:23 | PCM.CONSN ---
- General Info Date of Service: 03/08/18 Admission Dx/Problem (Free Text): Small bowel obstruction Subjective Update: Pt had NGT removed last night. She feels better. Reports one BM yesterday after enema, and a second BM this morning that was not stimulated. Tolerating water. Denies abdominal pain or nausea. Functional Status: Reports: Pain Controlled Pain Score: 0 - Patient Data Vitals - Most Recent: Last Vital Signs Temp 36.2 C 03/08/18 03:05 Pulse 68 03/08/18 03:07 Resp 16 03/08/18 03:05 BP 123/59 L 03/08/18 03:07 Pulse Ox 96 03/08/18 03:07 Weight - Most Recent: 63.458 kg I&O - Last 24 Hours: Intake & Output 03/07/18 03/08/18 03/08/18 22:59 06:59 14:59 Intake Total 987 425 Output Total 650 1800 Balance 337 -1375 Lab Results Last 24 Hours: Laboratory Results - last 24 hr 03/07/18 03/07/18 03/07/18 Range/Units 06:45 06:45 06:45 WBC 10.44 H (3.98-10.04) K/mm3 RBC 4.12 (3.98-5.22) M/mm3 Hgb 12.8 (11.2-15.7) gm/L Hct 39.0 (34.1-44.9) % MCV 94.7 (79.4-94.8) fl MCH 31.1 (25.6-32.2) pg MCHC 32.8 (32.2-35.5) g/dl RDW Std Deviation 46.1 (36.4-46.3) fL Plt Count 317 (182-369) K/mm3 MPV 8.9 L (9.4-12.3) fl Neut % (Auto) 74.3 H (34.0-71.1) % Lymph % (Auto) 15.8 L (19.3-51.7) % [place] % (Auto) 8.0 (4.7-12.5) % Eos % (Auto) 1.4 (0.7-5.8) Baso % (Auto) 0.2 (0.1-1.2) % Neut # (Auto) 7.76 H (1.56-6.13) K/mm3 Lymph # (Auto) 1.65 (1.18-3.74) K/mm3 [place] # (Auto) 0.83 H (0.24-0.36) K/mm3 Eos # (Auto) 0.15 (0.04-0.36) K/mm3 Baso # (Auto) 0.02 (0.01-0.08) K/mm3 Sodium 141 (136-145) mEq/L Potassium 3.5 (3.5-5.1) mEq/L Chloride 108 H (98-107) mEq/L Carbon Dioxide 25 (21-32) mEq/L Anion Gap 11.5 (5-15) BUN 6 L (7-18) mg/dL Creatinine 0.5 L (0.55-1.02) mg/dL Est Cr Clr Drug Dosing 76.71 mL/min Estimated GFR (MDRD) > 60 (>60) mL/min BUN/Creatinine Ratio 12.0 L (14-18) Glucose 110 (83-115) mg/dL POC Glucose (83-110) mg/dL Lactic Acid 0.7 (0.4-2.0) mmol/L Calcium 8.2 L (8.5-10.1) mg/dL Magnesium 1.9 (1.8-2.4) mg/dl C-Reactive Protein 0.7 (<1.0) mg/dL 03/07/18 03/07/18 03/07/18 Range/Units 12:33 18:43 20:31 WBC (3.98-10.04) K/mm3 RBC (3.98-5.22) M/mm3 Hgb (11.2-15.7) gm/L Hct (34.1-44.9) % MCV (79.4-94.8) fl MCH (25.6-32.2) pg MCHC (32.2-35.5) g/dl RDW Std Deviation (36.4-46.3) fL Plt Count (182-369) K/mm3 MPV (9.4-12.3) fl Neut % (Auto) (34.0-71.1) % Lymph % (Auto) (19.3-51.7) % [place] % (Auto) (4.7-12.5) % Eos % (Auto) (0.7-5.8) Baso % (Auto) (0.1-1.2) % Neut # (Auto) (1.56-6.13) K/mm3 Lymph # (Auto) (1.18-3.74) K/mm3 [place] # (Auto) (0.24-0.36) K/mm3 Eos # (Auto) (0.04-0.36) K/mm3 Baso # (Auto) (0.01-0.08) K/mm3 Sodium (136-145) mEq/L Potassium (3.5-5.1) mEq/L Chloride (98-107) mEq/L Carbon Dioxide (21-32) mEq/L Anion Gap (5-15) BUN (7-18) mg/dL Creatinine (0.55-1.02) mg/dL Est Cr Clr Drug Dosing mL/min Estimated GFR (MDRD) (>60) mL/min BUN/Creatinine Ratio (14-18) Glucose (83-115) mg/dL POC Glucose 101 121 H 106 (83-110) mg/dL Lactic Acid (0.4-2.0) mmol/L Calcium (8.5-10.1) mg/dL Magnesium (1.8-2.4) mg/dl C-Reactive Protein (<1.0) mg/dL 03/08/18 Range/Units 06:03 WBC 8.02 (3.98-10.04) K/mm3 RBC 3.95 L (3.98-5.22) M/mm3 Hgb 12.5 (11.2-15.7) gm/L Hct 37.3 (34.1-44.9) % MCV 94.4 (79.4-94.8) fl MCH 31.6 (25.6-32.2) pg MCHC 33.5 (32.2-35.5) g/dl RDW Std Deviation 44.6 (36.4-46.3) fL Plt Count 289 (182-369) K/mm3 MPV 8.9 L (9.4-12.3) fl Neut % (Auto) 61.2 (34.0-71.1) % Lymph % (Auto) 25.4 (19.3-51.7) % [place] % (Auto) 10.5 (4.7-12.5) % Eos % (Auto) 2.4 (0.7-5.8) Baso % (Auto) 0.4 (0.1-1.2) % Neut # (Auto) 4.91 (1.56-6.13) K/mm3 Lymph # (Auto) 2.04 (1.18-3.74) K/mm3 [place] # (Auto) 0.84 H (0.24-0.36) K/mm3 Eos # (Auto) 0.19 (0.04-0.36) K/mm3 Baso # (Auto) 0.03 (0.01-0.08) K/mm3 Sodium (136-145) mEq/L Potassium (3.5-5.1) mEq/L Chloride (98-107) mEq/L Carbon Dioxide (21-32) mEq/L Anion Gap (5-15) BUN (7-18) mg/dL Creatinine (0.55-1.02) mg/dL Est Cr Clr Drug Dosing mL/min Estimated GFR (MDRD) (>60) mL/min BUN/Creatinine Ratio (14-18) Glucose (83-115) mg/dL POC Glucose (83-110) mg/dL Lactic Acid (0.4-2.0) mmol/L Calcium (8.5-10.1) mg/dL Magnesium (1.8-2.4) mg/dl C-Reactive Protein (<1.0) mg/dL Faraz Results Last 24 Hours: Microbiology 03/05/18 19:49 Urine Culture - Final Urine, Voided MIXED SIMBA SUGGESTIVE OF CONTAMINATION. Med Orders - Current: Current Medications Acetaminophen (Tylenol) 650 mg RECTAL Q4H PRN PRN Reason: Pain (mild 1-3) Benzocaine (Hurricaine 20% Swiss) 0 ml MUCMEM Q4HR PRN PRN Reason: throat pain Last Admin: 03/07/18 06:11 Dose: 1 applic Benzocaine/Menthol (Cepacol Sore Throat) 1 lozenge MUCMEM Q4HR PRN PRN Reason: throat irritation Last Admin: 03/07/18 15:24 Dose: 1 lozenge Enoxaparin Sodium (Lovenox) 40 mg SUBCUT DAILY KACI Last Admin: 03/07/18 08:11 Dose: 40 mg Hydralazine HCl (Apresoline) 20 mg IVPUSH Q4H PRN PRN Reason: Hypertension Hydromorphone HCl (Dilaudid) 0.5 mg IVPUSH Q4H PRN PRN Reason: Pain Last Admin: 03/06/18 17:13 Dose: 0.5 mg Lorazepam (Ativan) 0.5 mg IVPUSH Q8H PRN PRN Reason: anxiety/insomnia Metoprolol Tartrate (Lopressor) 5 mg IVPUSH Q4H PRN PRN Reason: Tachycardia Ondansetron HCl (Zofran) 4 mg IV Q6H PRN PRN Reason: Nausea/Vomiting Pantoprazole Sodium (Protonix Iv) 40 mg IV DAILY KACI Last Admin: 03/07/18 08:11 Dose: 40 mg Sodium Chloride (Saline Flush) 10 ml FLUSH ASDIRECTED PRN PRN Reason: Keep Vein Open Last Admin: 03/05/18 20:13 Dose: 10 ml Discontinued Medications Diatrizoate Meglum/Diatrizoate Sod (Gastrografin 37%) 120 ml PO ONETIME ONE Stop: 03/05/18 19:28 Last Admin: 03/05/18 20:13 Dose: 120 ml Hydromorphone HCl (Dilaudid) 0.5 mg IVPUSH ONETIME ONE Stop: 03/05/18 19:52 Last Admin: 03/05/18 19:58 Dose: 0.5 mg Hydromorphone HCl (Dilaudid) Confirm Administered Dose 0.5 mg .ROUTE .STK-MED ONE Stop: 03/05/18 19:56 Last Admin: 03/05/18 19:59 Dose: Not Given Hydromorphone HCl (Dilaudid) 0.5 mg IVPUSH ONETIME ONE Stop: 03/05/18 21:56 Last Admin: 03/05/18 23:10 Dose: Not Given Hydromorphone HCl (Dilaudid) Confirm Administered Dose 0.5 mg .ROUTE .STK-MED ONE Stop: 03/05/18 22:04 Last Admin: 03/05/18 22:08 Dose: 0.5 mg Sodium Chloride (Normal Saline) 1,000 mls @ 999 mls/hr IV ONETIME ONE Stop: 03/05/18 20:52 Last Admin: 03/05/18 19:59 Dose: 999 mls/hr Sodium Chloride (Normal Saline) Confirm Administered Dose 1,000 mls @ as directed .ROUTE .STK-MED ONE Stop: 03/05/18 19:55 Last Admin: 03/05/18 20:30 Dose: Not Given Sodium Chloride (Normal Saline) 1,000 mls @ 125 mls/hr IV ONETIME ONE Stop: 03/06/18 05:53 Last Admin: 03/05/18 23:10 Dose: 125 mls/hr Dextrose/Sodium Chloride (Dextrose 5%-Normal Saline) 1,000 mls @ 75 mls/hr IV ASDIRECTED KACI Last Admin: 03/07/18 08:45 Dose: 75 mls/hr Iopamidol (Isovue-300 (61%)) 100 ml IVPUSH ONETIME ONE Stop: 03/05/18 19:28 Last Admin: 03/05/18 20:13 Dose: 100 ml Lidocaine HCl (Xylocaine 2% Jelly) Confirm Administered Dose 10 ml .ROUTE .STK- MED ONE Stop: 03/05/18 22:24 Last Admin: 03/05/18 23:11 Dose: Not Given Lidocaine HCl (Xylocaine 2% Jelly) 10 ml MUCMEM ONETIME ONE Stop: 03/05/18 23:12 Last Admin: 03/05/18 23:11 Dose: 10 ml Ondansetron HCl (Zofran) 4 mg IVPUSH ONETIME ONE Stop: 03/05/18 18:52 Last Admin: 03/05/18 18:56 Dose: 4 mg Ondansetron HCl (Zofran) 4 mg IVPUSH ONETIME ONE Stop: 03/05/18 21:56 Last Admin: 03/05/18 22:08 Dose: 4 mg Pantoprazole Sodium (Protonix Iv) 40 mg IVPUSH ONETIME ONE Stop: 03/06/18 01:01 Last Admin: 03/06/18 01:04 Dose: 40 mg - Exam General: Alert, Oriented HEENT: EOMI Neck: Supple Lungs: Normal Respiratory Effort GI/Abdominal Exam: Soft, Non-Tender, No Distention Consult PN Assessment/Plan Procedures: Procedures CARDIOVASCULAR STRESS TEST (02/07/17) CULTURE OTHR SPECIMN AEROBIC (10/20/15) HT MUSCLE IMAGE SPECT MULT (02/07/17) (1) Small bowel obstruction SNOMED Code(s): 002348831 Code(s): K56.609 - UNSP INTESTNL OBST, UNSP TO PARTIAL VERSUS COMPLETE OBST Current Visit: Yes Problem List Initiated/Reviewed/Updated: Yes Plan: 77 y/o female with small bowel obstruction, now resolved - clinically resolved, recommend clear liquid diet and advance as tolerated - pt educated that she may have a recurrence of small bowel obstruction in the future, and to be aware of the potential symptoms - Continue constipation management with fiber supplement, may add colace and/or miralax to her home regimen - No surgical follow up at this time. She is aware to schedule an appointment with me if she becomes symptomatic with her hernia. Will sign off. Thank you for this consult. Please contact me for any questions or concerns. Salena Greenfield MD General Surgery
[2018-03-08] MEDS ORDERED: Ondansetron 4 MG Tab.DIS PO PRN (07:40)
[2018-03-08] MEDS ORDERED: Acetaminophen 325 MG Tab PO PRN (07:40)
--- NOTE | 2018-03-08 07:45 | PCM.PN ---
<Jeffy Beaver - Last Filed: 03/08/18 11:13> - General Info Date of Service: 03/08/18 Admission Dx/Problem (Free Text): Small bowel obstruction Subjective Update: In to see Jaz. She is sitting in the chair awaiting breakfast. NG tube has been removed. She has no pain. She states she feels better and did have a small BM last night. This was in addition to her larger BM after the enema. Dr. Alves was in to see her. She is satisfied with the progress and states she will sign off. Will need to manage constipation and advance diet. No patient concerns. No nursing concerns. Functional Status: Reports: Pain Controlled, Tolerating Diet, Ambulating, Urinating. Denies: New Symptoms - Review of Systems General: Reports: No Symptoms. Denies: Fever, Weakness, Fatigue, Malaise HEENT: Reports: No Symptoms Pulmonary: Reports: No Symptoms. Denies: Shortness of Breath, Cough, Sputum, Wheezing Cardiovascular: Reports: No Symptoms Gastrointestinal: Reports: No Symptoms. Denies: Abdominal Pain, Constipation, Diarrhea, Nausea, Vomiting Genitourinary: Reports: No Symptoms Musculoskeletal: Reports: No Symptoms Skin: Reports: No Symptoms Neurological: Reports: No Symptoms Psychiatric: Reports: No Symptoms - Patient Data Vitals - Most Recent: Last Vital Signs Temp 97.2 F 03/08/18 03:05 Pulse 68 03/08/18 03:07 Resp 16 03/08/18 03:05 BP 123/59 L 03/08/18 03:07 Pulse Ox 96 03/08/18 03:07 Weight - Most Recent: 63.458 kg I&O - Last 24 Hours: Intake & Output 03/07/18 03/08/18 03/08/18 22:59 06:59 14:59 Intake Total 987 425 Output Total 650 1800 Balance 337 -1375 Lab Results Last 24 Hours: Laboratory Results - last 24 hr 03/07/18 03/07/18 03/07/18 Range/Units 12:33 18:43 20:31 WBC (3.98-10.04) K/mm3 RBC (3.98-5.22) M/mm3 Hgb (11.2-15.7) gm/L Hct (34.1-44.9) % MCV (79.4-94.8) fl MCH (25.6-32.2) pg MCHC (32.2-35.5) g/dl RDW Std Deviation (36.4-46.3) fL Plt Count (182-369) K/mm3 MPV (9.4-12.3) fl Neut % (Auto) (34.0-71.1) % Lymph % (Auto) (19.3-51.7) % [place] % (Auto) (4.7-12.5) % Eos % (Auto) (0.7-5.8) Baso % (Auto) (0.1-1.2) % Neut # (Auto) (1.56-6.13) K/mm3 Lymph # (Auto) (1.18-3.74) K/mm3 [place] # (Auto) (0.24-0.36) K/mm3 Eos # (Auto) (0.04-0.36) K/mm3 Baso # (Auto) (0.01-0.08) K/mm3 Sodium (136-145) mEq/L Potassium (3.5-5.1) mEq/L Chloride (98-107) mEq/L Carbon Dioxide (21-32) mEq/L Anion Gap (5-15) BUN (7-18) mg/dL Creatinine (0.55-1.02) mg/dL Est Cr Clr Drug Dosing mL/min Estimated GFR (MDRD) (>60) mL/min BUN/Creatinine Ratio (14-18) Glucose (83-115) mg/dL POC Glucose 101 121 H 106 (83-110) mg/dL Magnesium (1.8-2.4) mg/dl C-Reactive Protein (<1.0) mg/dL 18 03/08/18 Range/Units 06:03 06:03 WBC 8.02 (3.98-10.04) K/mm3 RBC 3.95 L (3.98-5.22) M/mm3 Hgb 12.5 (11.2-15.7) gm/L Hct 37.3 (34.1-44.9) % MCV 94.4 (79.4-94.8) fl MCH 31.6 (25.6-32.2) pg MCHC 33.5 (32.2-35.5) g/dl RDW Std Deviation 44.6 (36.4-46.3) fL Plt Count 289 (182-369) K/mm3 MPV 8.9 L (9.4-12.3) fl Neut % (Auto) 61.2 (34.0-71.1) % Lymph % (Auto) 25.4 (19.3-51.7) % [place] % (Auto) 10.5 (4.7-12.5) % Eos % (Auto) 2.4 (0.7-5.8) Baso % (Auto) 0.4 (0.1-1.2) % Neut # (Auto) 4.91 (1.56-6.13) K/mm3 Lymph # (Auto) 2.04 (1.18-3.74) K/mm3 [place] # (Auto) 0.84 H (0.24-0.36) K/mm3 Eos # (Auto) 0.19 (0.04-0.36) K/mm3 Baso # (Auto) 0.03 (0.01-0.08) K/mm3 Sodium 141 (136-145) mEq/L Potassium 3.1 L (3.5-5.1) mEq/L Chloride 107 (98-107) mEq/L Carbon Dioxide 27 (21-32) mEq/L Anion Gap 10.1 (5-15) BUN 5 L (7-18) mg/dL Creatinine 0.5 L (0.55-1.02) mg/dL Est Cr Clr Drug Dosing 76.71 mL/min Estimated GFR (MDRD) > 60 (>60) mL/min BUN/Creatinine Ratio 10.0 L (14-18) Glucose 95 (83-115) mg/dL POC Glucose (83-110) mg/dL Magnesium 1.9 (1.8-2.4) mg/dl C-Reactive Protein 1.4 H* (<1.0) mg/dL Faraz Results Last 24 Hours: Microbiology 03/05/18 19:49 Urine Culture - Final Urine, Voided MIXED SIMBA SUGGESTIVE OF CONTAMINATION. Med Orders - Current: Current Medications Acetaminophen (Tylenol) 650 mg RECTAL Q4H PRN PRN Reason: Pain (mild 1-3) Benzocaine (Hurricaine 20% [place]) 0 ml MUCMEM Q4HR PRN PRN Reason: throat pain Last Admin: 03/07/18 06:11 Dose: 1 applic Benzocaine/Menthol (Cepacol Sore Throat) 1 lozenge MUCMEM Q4HR PRN PRN Reason: throat irritation Last Admin: 03/07/18 15:24 Dose: 1 lozenge Enoxaparin Sodium (Lovenox) 40 mg SUBCUT DAILY [facility] Last Admin: 03/07/18 08:11 Dose: 40 mg Hydralazine HCl (Apresoline) 20 mg IVPUSH Q4H PRN PRN Reason: Hypertension Hydromorphone HCl (Dilaudid) 0.5 mg IVPUSH Q4H PRN PRN Reason: Pain Last Admin: 03/06/18 17:13 Dose: 0.5 mg Lorazepam (Ativan) 0.5 mg IVPUSH Q8H PRN PRN Reason: anxiety/insomnia Metoprolol Tartrate (Lopressor) 5 mg IVPUSH Q4H PRN PRN Reason: Tachycardia Ondansetron HCl (Zofran) 4 mg IV Q6H PRN PRN Reason: Nausea/Vomiting Pantoprazole Sodium (Protonix Iv) 40 mg IV DAILY [facility] Last Admin: 03/07/18 08:11 Dose: 40 mg Sodium Chloride (Saline Flush) 10 ml FLUSH ASDIRECTED PRN PRN Reason: Keep Vein Open Last Admin: 03/05/18 20:13 Dose: 10 ml Discontinued Medications Diatrizoate Meglum/Diatrizoate Sod (Gastrografin 37%) 120 ml PO ONETIME ONE Stop: 03/05/18 19:28 Last Admin: 03/05/18 20:13 Dose: 120 ml Hydromorphone HCl (Dilaudid) 0.5 mg IVPUSH ONETIME ONE Stop: 03/05/18 19:52 Last Admin: 03/05/18 19:58 Dose: 0.5 mg Hydromorphone HCl (Dilaudid) Confirm Administered Dose 0.5 mg .ROUTE .STK-MED ONE Stop: 03/05/18 19:56 Last Admin: 03/05/18 19:59 Dose: Not Given Hydromorphone HCl (Dilaudid) 0.5 mg IVPUSH ONETIME ONE Stop: 03/05/18 21:56 Last Admin: 03/05/18 23:10 Dose: Not Given Hydromorphone HCl (Dilaudid) Confirm Administered Dose 0.5 mg .ROUTE .STK-MED ONE Stop: 03/05/18 22:04 Last Admin: 03/05/18 22:08 Dose: 0.5 mg Sodium Chloride (Normal Saline) 1,000 mls @ 999 mls/hr IV ONETIME ONE Stop: 03/05/18 20:52 Last Admin: 03/05/18 19:59 Dose: 999 mls/hr Sodium Chloride (Normal Saline) Confirm Administered Dose 1,000 mls @ as directed .ROUTE .STK-MED ONE Stop: 03/05/18 19:55 Last Admin: 03/05/18 20:30 Dose: Not Given Sodium Chloride (Normal Saline) 1,000 mls @ 125 mls/hr IV ONETIME ONE Stop: 03/06/18 05:53 Last Admin: 03/05/18 23:10 Dose: 125 mls/hr Dextrose/Sodium Chloride (Dextrose 5%-Normal Saline) 1,000 mls @ 75 mls/hr IV ASDIRECTED [facility] Last Admin: 03/07/18 08:45 Dose: 75 mls/hr Iopamidol (Isovue-300 (61%)) 100 ml IVPUSH ONETIME ONE Stop: 03/05/18 19:28 Last Admin: 03/05/18 20:13 Dose: 100 ml Lidocaine HCl (Xylocaine 2% Jelly) Confirm Administered Dose 10 ml .ROUTE .STK- MED ONE Stop: 03/05/18 22:24 Last Admin: 03/05/18 23:11 Dose: Not Given Lidocaine HCl (Xylocaine 2% Jelly) 10 ml MUCMEM ONETIME ONE Stop: 03/05/18 23:12 Last Admin: 03/05/18 23:11 Dose: 10 ml Ondansetron HCl (Zofran) 4 mg IVPUSH ONETIME ONE Stop: 03/05/18 18:52 Last Admin: 03/05/18 18:56 Dose: 4 mg Ondansetron HCl (Zofran) 4 mg IVPUSH ONETIME ONE Stop: 03/05/18 21:56 Last Admin: 03/05/18 22:08 Dose: 4 mg Pantoprazole Sodium (Protonix Iv) 40 mg IVPUSH ONETIME ONE Stop: 03/06/18 01:01 Last Admin: 03/06/18 01:04 Dose: 40 mg - Exam Quality Assessment: DVT Prophylaxis General: Alert, Oriented, Cooperative, No Acute Distress HEENT: Pupils Equal, Pupils Reactive, EOMI, Mucous Membr. Moist/[place] Neck: Supple, Trachea Midline, No JVD Lungs: Clear to Auscultation, Normal Respiratory Effort Cardiovascular: Regular Rate, Regular Rhythm GI/Abdominal Exam: Normal Bowel Sounds, Soft, Non-Tender, No Distention, No Mass (Female) Exam: Deferred Back Exam: Normal Inspection, Full Range of Motion Extremities: Normal Inspection, Normal Range of Motion, Non-Tender, No Pedal Edema, Normal Capillary Refill Peripheral Pulses: 2+: Radial (L), Radial (R), Posterior Tibial (L), Posterior Tibial (R), Dorsalis Pedis (L), Dorsalis Pedis (R) Skin: Warm, Dry, Intact Neurological: No New Focal Deficit Psy/Mental Status: Alert, Normal Affect, Normal Mood - Problem List & Annotations (1) Small bowel obstruction SNOMED Code(s): 140657859 Code(s): K56.609 - UNSP INTESTNL OBST, UNSP TO PARTIAL VERSUS COMPLETE OBST Status: Acute Current Visit: Yes (2) Constipation SNOMED Code(s): 11962848 Code(s): K59.00 - CONSTIPATION, UNSPECIFIED Status: Chronic Priority: Low Current Visit: No Qualifiers: Constipation type: unspecified constipation type Qualified Code(s): K59.00 - Constipation, unspecified - Problem List Review Problem List Initiated/Reviewed/Updated: Yes - My Orders Last 24 Hours: My Active Orders 03/07/18 16:00 Enema [RC] ASDIRECTED 03/08/18 06:03 BASIC METABOLIC PANEL,BMP [CHEM] AM CRP [C-REACTIVE PROTEIN] [CHEM] AM LACTIC ACID [CHEM] AM MAGNESIUM [CHEM] AM 03/09/18 05:11 BASIC METABOLIC PANEL,BMP [CHEM] AM CBC WITH AUTO DIFF [HEME] AM CRP [C-REACTIVE PROTEIN] [CHEM] AM LACTIC ACID [CHEM] AM MAGNESIUM [CHEM] AM 03/10/18 05:11 BASIC METABOLIC PANEL,BMP [CHEM] AM CBC WITH AUTO DIFF [HEME] AM CRP [C-REACTIVE PROTEIN] [CHEM] AM LACTIC ACID [CHEM] AM MAGNESIUM [CHEM] AM - Plan Plan:: I/P: Acute: SBO -Reports abdominal pain started around 0300 on 03/05/18 -Progressed to nausea and vomiting -Denies fever or chills, denies prior history of SBO -Reports prior appendectomy and colonoscopy 10+ years ago with polyps removed ; hx/o chronic constipation -Has current hernia which produces pain with heavy lifting -WBC 12.14-->8.02 -CRP 0.4-->1.4 -Lactic acid 1.2 -CT scan suggests SBO with transition point in mid pelvis, No mucosal thickening, Large hiatal hernia on left lower abdomen -NG tube placed in ED with low intermittent suction -> discontinue -Pain medications as ordered - avoid opioids if possible -NPO with ice chips-> advance to clear liquids; advance further as tolerated -D5NS with glucose checks Q6hr due to NPO -> stop -IV protonix -> switch to PO pepcid -GS consulted in ED - Dr. Long Lujan -> signed off today -Does not need follow-up with GS at this point -Continue fiber supplementation, consider Colace or miralax for constipation -Patient warned of possibility of recurrence of symptoms -Ambulate -Anti-emetics as needed -Enema on 03/07/18 with good return after -Had BM last night after enema and small amount overnight -Add PRN constipation medications -Add probiotic -Consult dietary "Pre-Diabetic" -Blood glucose 155 in ED -A1C 6.2 -Briefly discussed lifestyle changes -PCP to monitor and follow-up on after discharge Chronic: Constipation Plan: Admit to medical floor on telemetry Other orders as indicated above PT/OT Routine AM labs DVT prophylaxis: Lovenox GI prophylaxis: Protonix -> switch to Pepcid Code Status: Full code; PCP: Dr. Hong Likely discharge on 03/09/18 pending tolerating advancing diet. <Susan Mcfadden - Last Filed: 03/08/18 18:07> - Patient Data Vitals - Most Recent: Last Vital Signs Temp 36.6 C 03/08/18 14:59 Pulse 72 03/08/18 14:59 Resp 16 03/08/18 14:59 BP 114/66 03/08/18 14:59 Pulse Ox 96 03/08/18 14:59 I&O - Last 24 Hours: Intake & Output 03/08/18 03/08/18 03/08/18 06:59 14:59 22:59 Intake Total 425 840 Output Total 1800 Balance -1375 840 Lab Results Last 24 Hours: Laboratory Results - last 24 hr 03/07/18 03/07/18 03/08/18 Range/Units 18:43 20:31 06:03 WBC 8.02 (3.98-10.04) K/mm3 RBC 3.95 L (3.98-5.22) M/mm3 Hgb 12.5 (11.2-15.7) gm/L Hct 37.3 (34.1-44.9) % MCV 94.4 (79.4-94.8) fl MCH 31.6 (25.6-32.2) pg MCHC 33.5 (32.2-35.5) g/dl RDW Std Deviation 44.6 (36.4-46.3) fL Plt Count 289 (182-369) K/mm3 MPV 8.9 L (9.4-12.3) fl Neut % (Auto) 61.2 (34.0-71.1) % Lymph % (Auto) 25.4 (19.3-51.7) % [place] % (Auto) 10.5 (4.7-12.5) % Eos % (Auto) 2.4 (0.7-5.8) Baso % (Auto) 0.4 (0.1-1.2) % Neut # (Auto) 4.91 (1.56-6.13) K/mm3 Lymph # (Auto) 2.04 (1.18-3.74) K/mm3 [place] # (Auto) 0.84 H (0.24-0.36) K/mm3 Eos # (Auto) 0.19 (0.04-0.36) K/mm3 Baso # (Auto) 0.03 (0.01-0.08) K/mm3 Sodium (136-145) mEq/L Potassium (3.5-5.1) mEq/L Chloride (98-107) mEq/L Carbon Dioxide (21-32) mEq/L Anion Gap (5-15) BUN (7-18) mg/dL Creatinine (0.55-1.02) mg/dL Est Cr Clr Drug Dosing mL/min Estimated GFR (MDRD) (>60) mL/min BUN/Creatinine Ratio (14-18) Glucose (83-115) mg/dL POC Glucose 121 H 106 (83-110) mg/dL Lactic Acid (0.4-2.0) mmol/L Calcium (8.5-10.1) mg/dL Magnesium (1.8-2.4) mg/dl C-Reactive Protein (<1.0) mg/dL 03/08/18 03/08/18 Range/Units 06:03 06:03 WBC (3.98-10.04) K/mm3 RBC (3.98-5.22) M/mm3 Hgb (11.2-15.7) gm/L Hct (34.1-44.9) % MCV (79.4-94.8) fl MCH (25.6-32.2) pg MCHC (32.2-35.5) g/dl RDW Std Deviation (36.4-46.3) fL Plt Count (182-369) K/mm3 MPV (9.4-12.3) fl Neut % (Auto) (34.0-71.1) % Lymph % (Auto) (19.3-51.7) % [place] % (Auto) (4.7-12.5) % Eos % (Auto) (0.7-5.8) Baso % (Auto) (0.1-1.2) % Neut # (Auto) (1.56-6.13) K/mm3 Lymph # (Auto) (1.18-3.74) K/mm3 [place] # (Auto) (0.24-0.36) K/mm3 Eos # (Auto) (0.04-0.36) K/mm3 Baso # (Auto) (0.01-0.08) K/mm3 Sodium 141 (136-145) mEq/L Potassium 3.1 L (3.5-5.1) mEq/L Chloride 107 (98-107) mEq/L Carbon Dioxide 27 (21-32) mEq/L Anion Gap 10.1 (5-15) BUN 5 L (7-18) mg/dL Creatinine 0.5 L (0.55-1.02) mg/dL Est Cr Clr Drug Dosing 76.71 mL/min Estimated GFR (MDRD) > 60 (>60) mL/min BUN/Creatinine Ratio 10.0 L (14-18) Glucose 95 (83-115) mg/dL POC Glucose (83-110) mg/dL Lactic Acid 0.4 (0.4-2.0) mmol/L Calcium 8.5 (8.5-10.1) mg/dL Magnesium 1.9 (1.8-2.4) mg/dl C-Reactive Protein 1.4 H* (<1.0) mg/dL Med Orders - Current: Current Medications Acetaminophen (Tylenol) 650 mg PO Q4H PRN PRN Reason: Pain (Mild 1-3)/fever Bisacodyl (Dulcolax) 5 mg PO DAILY PRN PRN Reason: Constipation Docusate Sodium (Colace) 100 mg PO DAILY [facility] Last Admin: 03/08/18 09:05 Dose: 100 mg Enoxaparin Sodium (Lovenox) 40 mg SUBCUT DAILY [facility] Last Admin: 03/08/18 08:02 Dose: 40 mg Famotidine (Pepcid) 20 mg PO BID [facility] Last Admin: 03/08/18 08:02 Dose: 20 mg Hydralazine HCl (Apresoline) 20 mg IVPUSH Q4H PRN PRN Reason: Hypertension Hydromorphone HCl (Dilaudid) 0.5 mg IVPUSH Q4H PRN PRN Reason: Pain Last Admin: 03/06/18 17:13 Dose: 0.5 mg Lorazepam (Ativan) 0.5 mg IVPUSH Q8H PRN PRN Reason: anxiety/insomnia Metoprolol Tartrate (Lopressor) 5 mg IVPUSH Q4H PRN PRN Reason: Tachycardia Ondansetron HCl (Zofran) 4 mg IV Q6H PRN PRN Reason: Nausea/Vomiting Ondansetron HCl (Zofran Odt) 4 mg PO Q6H PRN PRN Reason: nausea, able to take PO Polyethylene Glycol (Miralax) 17 gm PO DAILY PRN PRN Reason: Constipation Saccharomyces Boulardii (Florastor) 250 mg PO DAILY [facility] Last Admin: 03/08/18 12:07 Dose: 250 mg Senna/Docusate Sodium (Senna Plus) 1 tab PO BID PRN PRN Reason: Constipation Sodium Chloride (Saline Flush) 10 ml FLUSH ASDIRECTED PRN PRN Reason: Keep Vein Open Last Admin: 03/05/18 20:13 Dose: 10 ml Discontinued Medications Acetaminophen (Tylenol) 650 mg RECTAL Q4H PRN PRN Reason: Pain (mild 1-3) Benzocaine (Hurricaine 20% [place]) 0 ml MUCMEM Q4HR PRN PRN Reason: throat pain Last Admin: 03/07/18 06:11 Dose: 1 applic Benzocaine/Menthol (Cepacol Sore Throat) 1 lozenge MUCMEM Q4HR PRN PRN Reason: throat irritation Last Admin: 03/07/18 15:24 Dose: 1 lozenge Diatrizoate Meglum/Diatrizoate Sod (Gastrografin 37%) 120 ml PO ONETIME ONE Stop: 03/05/18 19:28 Last Admin: 03/05/18 20:13 Dose: 120 ml Docusate Sodium (Colace) 100 mg PO BID PRN PRN Reason: Constipation Hydromorphone HCl (Dilaudid) 0.5 mg IVPUSH ONETIME ONE Stop: 03/05/18 19:52 Last Admin: 03/05/18 19:58 Dose: 0.5 mg Hydromorphone HCl (Dilaudid) Confirm Administered Dose 0.5 mg .ROUTE .STK-MED ONE Stop: 03/05/18 19:56 Last Admin: 03/05/18 19:59 Dose: Not Given Hydromorphone HCl (Dilaudid) 0.5 mg IVPUSH ONETIME ONE Stop: 03/05/18 21:56 Last Admin: 03/05/18 23:10 Dose: Not Given Hydromorphone HCl (Dilaudid) Confirm Administered Dose 0.5 mg .ROUTE .STK-MED ONE Stop: 03/05/18 22:04 Last Admin: 03/05/18 22:08 Dose: 0.5 mg Sodium Chloride (Normal Saline) 1,000 mls @ 999 mls/hr IV ONETIME ONE Stop: 03/05/18 20:52 Last Admin: 03/05/18 19:59 Dose: 999 mls/hr Sodium Chloride (Normal Saline) Confirm Administered Dose 1,000 mls @ as directed .ROUTE .STK-MED ONE Stop: 03/05/18 19:55 Last Admin: 03/05/18 20:30 Dose: Not Given Sodium Chloride (Normal Saline) 1,000 mls @ 125 mls/hr IV ONETIME ONE Stop: 03/06/18 05:53 Last Admin: 03/05/18 23:10 Dose: 125 mls/hr Dextrose/Sodium Chloride (Dextrose 5%-Normal Saline) 1,000 mls @ 75 mls/hr IV ASDIRECTED [facility] Last Admin: 03/07/18 08:45 Dose: 75 mls/hr Iopamidol (Isovue-300 (61%)) 100 ml IVPUSH ONETIME ONE Stop: 03/05/18 19:28 Last Admin: 03/05/18 20:13 Dose: 100 ml Lidocaine HCl (Xylocaine 2% Jelly) Confirm Administered Dose 10 ml .ROUTE .STK- MED ONE Stop: 03/05/18 22:24 Last Admin: 03/05/18 23:11 Dose: Not Given Lidocaine HCl (Xylocaine 2% Jelly) 10 ml MUCMEM ONETIME ONE Stop: 03/05/18 23:12 Last Admin: 03/05/18 23:11 Dose: 10 ml Ondansetron HCl (Zofran) 4 mg IVPUSH ONETIME ONE Stop: 03/05/18 18:52 Last Admin: 03/05/18 18:56 Dose: 4 mg Ondansetron HCl (Zofran) 4 mg IVPUSH ONETIME ONE Stop: 03/05/18 21:56 Last Admin: 03/05/18 22:08 Dose: 4 mg Pantoprazole Sodium (Protonix Iv) 40 mg IVPUSH ONETIME ONE Stop: 03/06/18 01:01 Last Admin: 03/06/18 01:04 Dose: 40 mg Pantoprazole Sodium (Protonix Iv) 40 mg IV DAILY [facility] Last Admin: 03/07/18 08:11 Dose: 40 mg Potassium Chloride (Potassium Chloride) 40 meq PO ONETIME ONE Stop: 03/08/18 09:05 Last Admin: 03/08/18 09:19 Dose: Not Given Potassium Chloride (Klor-Con M20) 40 meq PO Q4HR [facility] Stop: 03/08/18 17:01 Last Admin: 03/08/18 12:07 Dose: 40 meq - My Orders Last 24 Hours: My Active Orders 03/07/18 22:27 Nasogastric Orogastric Tube Removal [OM.PC] Stat 03/08/18 Dinner Heart Healthy Diet [DIET] - Plan Plan:: LOS>96 hours with slow progress
[2018-03-08] MEDS ORDERED: Polyethylene Glycol 3350 Powder 17 GM Packet PO PRN (07:46)
[2018-03-08] MEDS ORDERED: Docusate Sodium 100 MG Cap PO PRN (07:46)
[2018-03-08] MEDS ORDERED: Bisacodyl 5 MG Tab PO PRN (07:46)
[2018-03-08] MEDS: Enoxaparin 40 MG/0.4 ML Syringe SUBCUT SCH (08:02)
[2018-03-08] MEDS: Famotidine 20 MG Tab PO SCH ×2 (08:02→22:11)
[2018-03-08] MEDS ORDERED: Potassium Chloride 10% 20 MEQ/15 ML Soln 30 ML UD Cup PO ONE (09:04)
[2018-03-08] MEDS: Docusate Sodium 100 MG Cap PO SCH (09:05)
[2018-03-08] MEDS: Potassium Chloride 20 MEQ Tab.ER PO SCH ×3 (09:16→18:29)
[2018-03-08] MEDS: Saccharomyces Boulardii (Probiotic) 250 MG Cap PO SCH (12:07)
[2018-03-09] MEDS: Saccharomyces Boulardii (Probiotic) 250 MG Cap PO SCH (08:19)
[2018-03-09] MEDS: Enoxaparin 40 MG/0.4 ML Syringe SUBCUT SCH (08:20)
[2018-03-09] MEDS: Famotidine 20 MG Tab PO SCH (08:20)
[2018-03-09] MEDS: Docusate Sodium 100 MG Cap PO SCH (08:20)
--- NOTE | 2018-03-09 11:24 | PCM.DCSUM1 ---
Discharge Summary - Hospital Course Free Text/Narrative:: 77 year old female with SBO, had an NGT for 48 hours with advancement of diet as tolerated. She was seen and evaluated by gen surg, there were no complications with conservative medical management. The patient had bowel retraining, she apparently has chronic constipation. Electrolytes were corrected as needed. HPI Initial Comments: Jaz Ramirez is a 77 yo female who presented to our ED yesterday evening with lower quadrant abdominal pain. She reports the pain started around 3 AM this morning and woke her from sleep. She took 2 aspirin and Pepto-Bismol went back to sleep. She woke again at 7 AM with pain throughout the day and is steadily worsened. She did have nausea and vomiting. She did take some Metamucil at one point and reportedly did have a small bowel movement earlier in the afternoon prior to visiting the ED. She reported they have been passing gas. Denies any fever, chills, syncope, hematochezia, chest pain, shortness of breath. She reports she has chronic as the patient and has had an appendectomy. She reports her colonoscopy was over 10 years ago and revealed polyps. She does report a current hernia which does give her some pain when she lifts heavy objects. Her last oral intake was around 10 AM on 03/05/18. In the ED Was 98.6 Fahrenheit. Pulse 81. Respirations 16. Blood pressure was elevated at 156/86. Pulse ox 100%. Labs were obtained: WBC is elevated at 12.14. He was low at 13.8. Hematocrit 41.8. She is normocytic. Lips are slightly elevated at 373,000. Neutrophils were elevated at 80%. There is 1% band neutrophils noted. Sodium is 141. Potassium 3.9. Chloride 103. Cardiac the 28. Anion gap 13.9. BUN is 11. Creatinine 0.7. EGFR is given 60. Glucose is elevated at 155. Serum osmolality is 299. Calcium 9.2. Bilirubin slightly elevated at 1.1. AST is 18, ALT 22, alkaline phosphatase 73. CRP 0.4. Protein 7.5. Albumin 3.9. Lipase is 74. A1c was obtained in the 6.2. UA is obtained and shows 1+ protein, 4+ ketones, Trace intact blood, Trace leukocyte esterase, 5-10 RBCs, and 5-10 WBCs. 55. Lactic acid is 1.2. CT scan of the abdomen and pelvis with IV and oral contrast is ordered and interpreted by [facility] as "large hiatal hernia with distended stomach filled with oral contrast. Findings consistent with small bowel obstruction. Fluid-filled dilated loops of small bowel with transition point within the mid pelvis. Pseudo-feces within dilated small bowel proceeding the transition point. Distal small bowel decompressed. No mucosal thickening. Mild left hydronephrosis. No obstructing renal artery ureteral stone identified. Findings could be consistent with recently passed stone versus infection. Recommend Correlation and Correlation with Urinalysis Culture. Small Amount of Free Fluid within the Pelvis. Left Lateral Lower Abdominal Wall hiatal hernia containing nonobstructed sigmoid colon. No CT findings of acute appendicitis. Hepatic steatosis. Additional nonemergent CT findings as described. call center director surgeon was contacted and recommended NG tube, which was subsequently placed and admission to the hospital. There is no plan for surgery at this time. She is given Dilaudid for pain. Started on normal saline. And was given Zofran for nausea. She is subsequently admitted to the medical surgical floor on telemetry. She denies any past medical history and takes no medications. She was never a smoker. Diagnosis: Stroke: No - Discharge Data Discharge Date: 03/09/18 Discharge Disposition: Home, Self-Care 01 Condition: Good - Patient Summary/Data Consults: Consultations 03/06/18 06:26 OT Evaluation and Treatment [CONS] Routine PT Evaluation and Treatment [CONS] Routine 03/06/18 09:09 Consult to Physician [CONS] Routine 03/08/18 11:11 Consult to Dietary [Consult to Outside [employer]] [CONS] Routine - Patient Instructions Diet: Heart Healthy Diet Activity: As Tolerated Driving: May Drive Today Showering/Bathing: May Shower Notify Provider of: Fever, Increased Pain, Nausea and/or Vomiting - Discharge Plan *PRESCRIPTION DRUG MONITORING PROGRAM REVIEWED*: No *COPY OF PRESCRIPTION DRUG MONITORING REPORT IN PATIENT LENCHO: No Prescriptions/Med Rec: Docusate Sodium [Colace] 100 mg PO DAILY #30 cap Polyethylene Glycol 3350 [MiraLAX] 17 gm PO DAILY PRN #30 packet PRN Reason: Constipation Saccharomyces Boulardii [Florastor] 250 mg PO DAILY #30 cap Home Medications: Home Meds Docusate Sodium [Colace] 100 mg PO DAILY #30 cap 08/18/18 [Rx] Polyethylene Glycol 3350 [MiraLAX] 17 gm PO DAILY PRN #30 packet 03/09/18 [Rx] Saccharomyces Boulardii [Florastor] 250 mg PO DAILY #30 cap 03/09/18 [Rx] Other Amb Orders: BASIC METABOLIC PANEL,BMP [CHEM] Time Frame: 03/13/18, Facility: [facility], Location: [facility] Patient Handouts: Small Bowel Obstruction, [id number], Constipation, Adult Forms: ED Department Discharge Referrals: Tammy Hong MD [Primary Care Provider] - (Please follow up with Dr. Hong in 1 week. ) Jignesh Naranjo MD [Physician] - (Please follow up with Dr. Naranjo in 1 week.) - Discharge Summary/Plan Comment DC Time >30 min.: No Discharge Summary/Plan Comment: SBO -Reports abdominal pain started around 0300 on 03/05/18 -Progressed to nausea and vomiting -Denies fever or chills, denies prior history of SBO -Reports prior appendectomy and colonoscopy 10+ years ago with polyps removed ; hx/o chronic constipation -Has current hernia which produces pain with heavy lifting -WBC 12.14-->8.02 -CRP 0.4-->1.4 -Lactic acid 1.2 -CT scan suggests SBO with transition point in mid pelvis, No mucosal thickening, Large hiatal hernia on left lower abdomen -NG tube placed in ED with low intermittent suction -> discontinue -Pain medications as ordered - avoid opioids if possible -NPO with ice chips-> advance to clear liquids; advance further as tolerated -D5NS with glucose checks Q6hr due to NPO -> stop -IV protonix -> switch to PO pepcid -GS consulted in ED - Dr. Long Lujan -> signed off today -Does not need follow-up with GS at this point -Continue fiber supplementation, consider Colace or miralax for constipation -Patient warned of possibility of recurrence of symptoms -Ambulate -Anti-emetics as needed -Enema on 03/07/18 with good return after -Had BM last night after enema and small amount overnight -Add PRN constipation medications -Add probiotic -Consult dietary "Pre-Diabetic" -Blood glucose 155 in ED -A1C 6.2 -Briefly discussed lifestyle changes -PCP to monitor and follow-up on after discharge Chronic: Constipation Plan: Admit to medical floor on telemetry Other orders as indicated above PT/OT Routine AM labs DVT prophylaxis: Lovenox GI prophylaxis: Protonix -> switch to Pepcid Code Status: Full code; PCP: Dr. Hong Likely discharge on 03/09/18 pending tolerating advancing diet. <Susan Mcfadden - Last Filed: 03/08/18 18:07> - General Info Date of Service: 03/05/18 Functional Status: Reports: Tolerating Diet, Ambulating - Review of Systems General: Reports: No Symptoms HEENT: Reports: No Symptoms Pulmonary: Reports: No Symptoms Cardiovascular: Reports: No Symptoms Gastrointestinal: Reports: No Symptoms Genitourinary: Reports: No Symptoms Musculoskeletal: Reports: No Symptoms Skin: Reports: No Symptoms Neurological: Reports: No Symptoms Psychiatric: Reports: No Symptoms - Patient Data Vitals - Most Recent: Last Vital Signs Temp 37.2 C 03/09/18 08:11 Pulse 74 03/09/18 08:11 Resp 20 03/09/18 08:11 BP 101/71 03/09/18 08:11 Pulse Ox 96 03/09/18 08:11 Weight - Most Recent: 64.637 kg I&O - Last 24 hours: Intake & Output 03/08/18 03/09/18 03/09/18 22:59 06:59 14:59 Intake Total 1120 500 420 Output Total 1400 1200 Balance -280 -700 420 Lab Results - Last 24 hrs: Laboratory Results - last 24 hr 03/09/18 03/09/18 Range/Units 06:00 06:00 WBC 7.02 (3.98-10.04) K/mm3 RBC 4.20 (3.98-5.22) M/mm3 Hgb 13.0 (11.2-15.7) gm/L Hct 39.5 (34.1-44.9) % MCV 94.0 (79.4-94.8) fl MCH 31.0 (25.6-32.2) pg MCHC 32.9 (32.2-35.5) g/dl RDW Std Deviation 44.4 (36.4-46.3) fL Plt Count 315 (182-369) K/mm3 MPV 9.3 L (9.4-12.3) fl Neut % (Auto) 53.0 (34.0-71.1) % Lymph % (Auto) 32.9 (19.3-51.7) % [place] % (Auto) 10.1 (4.7-12.5) % Eos % (Auto) 3.7 (0.7-5.8) Baso % (Auto) 0.3 (0.1-1.2) % Neut # (Auto) 3.72 (1.56-6.13) K/mm3 Lymph # (Auto) 2.31 (1.18-3.74) K/mm3 [place] # (Auto) 0.71 H (0.24-0.36) K/mm3 Eos # (Auto) 0.26 (0.04-0.36) K/mm3 Baso # (Auto) 0.02 (0.01-0.08) K/mm3 Sodium 140 (136-145) mEq/L Potassium 4.4 (3.5-5.1) mEq/L Chloride 107 (98-107) mEq/L Carbon Dioxide 27 (21-32) mEq/L Anion Gap 10.4 (5-15) BUN 12 (7-18) mg/dL Creatinine 0.6 (0.55-1.02) mg/dL Est Cr Clr Drug Dosing 63.92 mL/min Estimated GFR (MDRD) > 60 (>60) mL/min BUN/Creatinine Ratio 20.0 H (14-18) Glucose 98 (83-115) mg/dL Calcium 9.1 (8.5-10.1) mg/dL Magnesium 2.0 (1.8-2.4) mg/dl C-Reactive Protein 1.2 H* (<1.0) mg/dL Med Orders - Current: Current Medications Acetaminophen (Tylenol) 650 mg PO Q4H PRN PRN Reason: Pain (Mild 1-3)/fever Bisacodyl (Dulcolax) 5 mg PO DAILY PRN PRN Reason: Constipation Docusate Sodium (Colace) 100 mg PO DAILY [facility] Last Admin: 03/09/18 08:20 Dose: 100 mg Enoxaparin Sodium (Lovenox) 40 mg SUBCUT DAILY [facility] Last Admin: 03/09/18 08:20 Dose: 40 mg Famotidine (Pepcid) 20 mg PO BID [facility] Last Admin: 03/09/18 08:20 Dose: 20 mg Hydralazine HCl (Apresoline) 20 mg IVPUSH Q4H PRN PRN Reason: Hypertension Hydromorphone HCl (Dilaudid) 0.5 mg IVPUSH Q4H PRN PRN Reason: Pain Last Admin: 03/06/18 17:13 Dose: 0.5 mg Lorazepam (Ativan) 0.5 mg IVPUSH Q8H PRN PRN Reason: anxiety/insomnia Metoprolol Tartrate (Lopressor) 5 mg IVPUSH Q4H PRN PRN Reason: Tachycardia Ondansetron HCl (Zofran) 4 mg IV Q6H PRN PRN Reason: Nausea/Vomiting Ondansetron HCl (Zofran Odt) 4 mg PO Q6H PRN PRN Reason: nausea, able to take PO Polyethylene Glycol (Miralax) 17 gm PO DAILY PRN PRN Reason: Constipation Saccharomyces Boulardii (Florastor) 250 mg PO DAILY [facility] Last Admin: 03/09/18 08:19 Dose: 250 mg Senna/Docusate Sodium (Senna Plus) 1 tab PO BID PRN PRN Reason: Constipation Sodium Chloride (Saline Flush) 10 ml FLUSH ASDIRECTED PRN PRN Reason: Keep Vein Open Last Admin: 03/05/18 20:13 Dose: 10 ml Discontinued Medications Acetaminophen (Tylenol) 650 mg RECTAL Q4H PRN PRN Reason: Pain (mild 1-3) Benzocaine (Hurricaine 20% [place]) 0 ml MUCMEM Q4HR PRN PRN Reason: throat pain Last Admin: 03/07/18 06:11 Dose: 1 applic Benzocaine/Menthol (Cepacol Sore Throat) 1 lozenge MUCMEM Q4HR PRN PRN Reason: throat irritation Last Admin: 03/07/18 15:24 Dose: 1 lozenge Diatrizoate Meglum/Diatrizoate Sod (Gastrografin 37%) 120 ml PO ONETIME ONE Stop: 03/05/18 19:28 Last Admin: 03/05/18 20:13 Dose: 120 ml Docusate Sodium (Colace) 100 mg PO BID PRN PRN Reason: Constipation Hydromorphone HCl (Dilaudid) 0.5 mg IVPUSH ONETIME ONE Stop: 03/05/18 19:52 Last Admin: 03/05/18 19:58 Dose: 0.5 mg Hydromorphone HCl (Dilaudid) Confirm Administered Dose 0.5 mg .ROUTE .STK-MED ONE Stop: 03/05/18 19:56 Last Admin: 03/05/18 19:59 Dose: Not Given Hydromorphone HCl (Dilaudid) 0.5 mg IVPUSH ONETIME ONE Stop: 03/05/18 21:56 Last Admin: 03/05/18 23:10 Dose: Not Given Hydromorphone HCl (Dilaudid) Confirm Administered Dose 0.5 mg .ROUTE .STK-MED ONE Stop: 03/05/18 22:04 Last Admin: 03/05/18 22:08 Dose: 0.5 mg Sodium Chloride (Normal Saline) 1,000 mls @ 999 mls/hr IV ONETIME ONE Stop: 03/05/18 20:52 Last Admin: 03/05/18 19:59 Dose: 999 mls/hr Sodium Chloride (Normal Saline) Confirm Administered Dose 1,000 mls @ as directed .ROUTE .STK-MED ONE Stop: 03/05/18 19:55 Last Admin: 03/05/18 20:30 Dose: Not Given Sodium Chloride (Normal Saline) 1,000 mls @ 125 mls/hr IV ONETIME ONE Stop: 03/06/18 05:53 Last Admin: 03/05/18 23:10 Dose: 125 mls/hr Dextrose/Sodium Chloride (Dextrose 5%-Normal Saline) 1,000 mls @ 75 mls/hr IV ASDIRECTED [facility] Last Admin: 03/07/18 08:45 Dose: 75 mls/hr Iopamidol (Isovue-300 (61%)) 100 ml IVPUSH ONETIME ONE Stop: 03/05/18 19:28 Last Admin: 03/05/18 20:13 Dose: 100 ml Lidocaine HCl (Xylocaine 2% Jelly) Confirm Administered Dose 10 ml .ROUTE .STK- MED ONE Stop: 03/05/18 22:24 Last Admin: 03/05/18 23:11 Dose: Not Given Lidocaine HCl (Xylocaine 2% Jelly) 10 ml MUCMEM ONETIME ONE Stop: 03/05/18 23:12 Last Admin: 03/05/18 23:11 Dose: 10 ml Ondansetron HCl (Zofran) 4 mg IVPUSH ONETIME ONE Stop: 03/05/18 18:52 Last Admin: 03/05/18 18:56 Dose: 4 mg Ondansetron HCl (Zofran) 4 mg IVPUSH ONETIME ONE Stop: 03/05/18 21:56 Last Admin: 03/05/18 22:08 Dose: 4 mg Pantoprazole Sodium (Protonix Iv) 40 mg IVPUSH ONETIME ONE Stop: 03/06/18 01:01 Last Admin: 03/06/18 01:04 Dose: 40 mg Pantoprazole Sodium (Protonix Iv) 40 mg IV DAILY [facility] Last Admin: 03/07/18 08:11 Dose: 40 mg Potassium Chloride (Potassium Chloride) 40 meq PO ONETIME ONE Stop: 03/08/18 09:05 Last Admin: 03/08/18 09:19 Dose: Not Given Potassium Chloride (Klor-Con M20) 40 meq PO Q4HR [facility] Stop: 03/08/18 17:01 Last Admin: 03/08/18 18:29 Dose: 40 meq - Exam General: Reports: Alert, Oriented, Cooperative, No Acute Distress HEENT: Reports: Pupils Equal, Pupils Reactive, EOMI Neck: Reports: Trachea Midline, No JVD Lungs: Reports: Normal Respiratory Effort Cardiovascular: Reports: Regular Rate, Regular Rhythm GI/Abdominal Exam: Normal Bowel Sounds, Soft, Non-Tender, No Organomegaly, No Distention (Female) Exam: Deferred Rectal (Female) Exam: Deferred Back Exam: Reports: Normal Inspection Extremities: Normal Inspection, Normal Capillary Refill Skin: Reports: Warm Neurological: Reports: No New Focal Deficit, Normal Gait, Normal Speech Psy/Mental Status: Reports: Alert, Normal Affect, Normal Mood
[2018-03-09] MEDS ORDERED: Levofloxacin 500 MG Tab PO SCH (13:00)
== END 2018-03-09 13:44 | disposition home or self-care (01) | DRG 390 ==
LOC: JD.ED 18:19 → JD.MS 23:29
PROVIDERS: ADMIT Internal Medicine Cardiovascular Disease; ATTEND Internal Medicine Cardiovascular Disease
PROC: 0D9670Z Drainage of Stomach with Drainage Device, Via Natural or Artificial Opening (ICD-10-PCS; principal; 2018-03-05)
DX: K56.609 Unspecified intestinal obstruction, unspecified as to partial versus complete obstruction (principal); K44.9 Diaphragmatic hernia without obstruction or gangrene; F32.9 Major depressive disorder, single episode, unspecified; R11.2 Nausea with vomiting, unspecified; R10.30 Lower abdominal pain, unspecified; K59.00 Constipation, unspecified; K59.09 Other constipation; R73.03 Prediabetes; Z86.010 Personal history of colon polyps; Z86.718 Personal history of other venous thrombosis and embolism
CPT/HCPCS: 36415; 74177; 80053; 81001; 82009; 83036; 83605; 83690; 83930; 85007; 85027; 86140; 87086; 96361; 96374; 96375; 96376; 99285; J1170 ×2; J2405 ×2; J7040 ×2; J7050 ×2; Q9963; Q9967; 80048; 82962; 83735; 85025; 97161-GP; 97165-GO; 99284; A9270-GY; C9113; J1650; J7042